=== PATIENT | male | born 1965 | race Caucasian/White ===

== ENCOUNTER 2018-09-22 10:04 | Emergency (ER) | payer BC ==
[2018-09-22] MEDS ORDERED: Sodium Chloride 0.9% 10 ML Syringe FLUSH PRN (10:09)
[2018-09-22] MEDS ORDERED: Sodium Chloride 0.9% 2.5 ML Syringe FLUSH PRN (10:09)
[2018-09-22] MEDS ORDERED: Sodium Chloride 0.9% 1,000 ML IV ONE (10:09)
--- NOTE | 2018-09-22 10:20 | EDM.PDOC ---
ED HPI GENERAL MEDICAL PROBLEM - General Chief Complaint: General Stated Complaint: FEELS FAINT Time Seen by Provider: 09/22/18 10:08 Source of Information: Reports: Patient History Limitations: Reports: No Limitations - History of Present Illness INITIAL COMMENTS - FREE TEXT/NARRATIVE: History of present illness: []Patient started feeling dizzy, weak, "just not right", with blurry vision and abdominal pain this morning. He's had no syncopal episode but has had episodes where he felt like he was about to pass out. Patient feels hot and flushed right before the episodes occur. Patient had similar episodes in March had a full workup through April and May. Dr. Young and has had an MRI of his brain on 05/29 this year that was normal. Review of systems: As per history of present illness and below otherwise all systems reviewed and negative. Past medical history: As per history of present illness and as reviewed below otherwise noncontributory. Surgical history: As per history of present illness and as reviewed below otherwise noncontributory. Social history: No reported history of drug or alcohol abuse. Family history: As per history of present illness and as reviewed below otherwise noncontributory. Physical exam: General: Well developed, well nourished in NAD HEENT: Atraumatic, normocephalic, pupils reactive, negative for conjunctival pallor or scleral icterus, mucous membranes moist, throat clear, neck supple, nontender, trachea midline. Lungs: Clear to auscultation, breath sounds equal bilaterally, chest nontender. Heart: S1S2, regular, negative for clicks, rubs, or JVD. Abdomen: NABS, Soft, nondistended, mild tenderness throughout no rebound or guarding. Negative for masses or hepatosplenomegaly. Negative for costovertebral tenderness. Pelvis: Stable nontender. Genitourinary: Deferred. Rectal: Deferred. Extremities: Atraumatic, negative for cords or calf pain. Neurovascular unremarkable. Neuro: Awake, alert, oriented. Cranial nerves II through XII unremarkable. Cerebellum unremarkable. Motor and sensory unremarkable throughout. Exam nonfocal. Skin:warm and dry Diagnostics: Bedside glucose, EKG, CBC, chemistry, troponin, UA, orthostatics Therapeutics: IV hydration ED Course: Stable improved Impression: Orthostatic hypotension, dehydration Prescriptions: None Plan: Take meds as directed, follow up with your primary care physician, return to ER if symptoms worsen or change. Definitive disposition and diagnosis as appropriate pending reevaluation and review of above. abd pain Pain Score (Numeric/FACES): 5 - Related Data Allergies Allergy/AdvReac Type Severity Reaction Status Date / Time adhesive Allergy Itching Verified 11/15/17 10:21 codeine Allergy Itching Verified 11/15/17 10:21 rocuronium Allergy Anaphylactic Verified 11/15/17 10:21 Shock Home Meds: Home Meds Blood Pressure Medications 09/22/18 [History] ED ROS GENERAL - Review of Systems Review Of Systems: See Below ED EXAM, GENERAL - Physical Exam Exam: See Below Course - Vital Signs Last Recorded V/S: Last Vital Signs Temp 97.8 F 09/22/18 10:11 Pulse 79 09/22/18 11:15 Resp 18 09/22/18 11:15 BP 142/86 H 09/22/18 11:15 Pulse Ox 97 09/22/18 11:15 Orthostatic Blood Pressure [ 94/59 Standing] Orthostatic Blood Pressure [ 125/75 Sitting] Orthostatic Blood Pressure [ 124/70 Supine] - Orders/Labs/Meds Orders: Active Orders 24 hr Category Date Time Status Blood Glucose Check, Bedside [RC] ONETIME Care 09/22/18 10:16 Active EKG Documentation Completion [RC] STAT Care 09/22/18 10:09 Active Orthostatic Vital Signs [RC] ASDIRECTED Care 09/22/18 10:09 Active LIPASE [CHEM] Stat Lab 09/22/18 10:15 Received Sodium Chloride 0.9% [Saline Flush] Med 09/22/18 10:09 Active 10 ml FLUSH ASDIRECTED PRN Sodium Chloride 0.9% [Saline Flush] Med 09/22/18 10:09 Active 2.5 ml FLUSH ASDIRECTED PRN Saline Lock Insert [OM.PC] Stat Oth 09/22/18 10:09 Ordered Medication Orders Sodium Chloride (Saline Flush) 10 ml FLUSH ASDIRECTED PRN PRN Reason: Keep Vein Open Sodium Chloride (Saline Flush) 2.5 ml FLUSH ASDIRECTED PRN PRN Reason: Keep Vein Open Labs: Laboratory Tests 09/22/18 09/22/18 09/22/18 Range/Units 10:15 10:15 11:25 WBC 10.92 (4.0-11.0) K/uL RBC 4.31 L (4.50-5.90) M/uL Hgb 14.6 (13.0-17.0) g/dL Hct 42.2 (38.0-50.0) % MCV 97.9 (80.0-98.0) fL MCH 33.9 H (27.0-32.0) pg MCHC 34.6 (31.0-37.0) g/dL RDW Std Deviation 46.5 (28.0-62.0) fl RDW Coeff of Roger 13 (11.0-15.0) % Plt Count 201 (150-400) K/uL MPV 10.80 (7.40-12.00) fL Neut % (Auto) 82.3 H (48.0-80.0) % Lymph % (Auto) 8.3 L (16.0-40.0) % Mcintosh % (Auto) 7.6 (0.0-15.0) % Eos % (Auto) 1.5 (0.0-7.0) % Baso % (Auto) 0.3 (0.0-1.5) % Neut # (Auto) 9.0 H (1.4-5.7) K/uL Lymph # (Auto) 0.9 (0.6-2.4) K/uL Mcintosh # (Auto) 0.8 (0.0-0.8) K/uL Eos # (Auto) 0.2 (0.0-0.7) K/uL Baso # (Auto) 0.0 (0.0-0.1) K/uL Nucleated RBC % 0.0 /100WBC Nucleated RBCs # 0 K/uL Sodium 137 (136-148) mmol/L Potassium 4.2 (3.5-5.1) mmol/L Chloride 104 (98-107) mmol/L Carbon Dioxide 21.6 (21.0-32.0) mmol/L BUN 16 (7.0-18.0) mg/dL Creatinine 1.2 (0.8-1.3) mg/dL Est Cr Clr Drug Dosing 83.13 mL/min Estimated GFR (MDRD) > 60.0 ml/min Glucose 112 H (74-106) mg/dL Calcium 8.9 (8.5-10.1) mg/dL Total Bilirubin 1.1 H (0.2-1.0) mg/dL AST 14 L (15-37) IU/L ALT 19 (14-63) IU/L Alkaline Phosphatase 75 (46-116) U/L Troponin I < 0.050 (0.000-0.056) ng/mL Total Protein 7.2 (6.4-8.2) g/dL Albumin 3.8 (3.4-5.0) g/dL Globulin 3.4 (2.6-4.0) g/dL Albumin/Globulin Ratio 1.1 (0.9-1.6) Urine Color YELLOW Urine Appearance CLEAR Urine pH 7.5 (5.0-8.0) Ur Specific [place] 1.010 (1.001-1.035) Urine Protein NEGATIVE (NEGATIVE) mg/dL Urine Glucose (UA) NEGATIVE (NEGATIVE) mg/dL Urine Ketones NEGATIVE (NEGATIVE) mg/dL Urine Occult Blood NEGATIVE (NEGATIVE) Urine Nitrite NEGATIVE (NEGATIVE) Urine Bilirubin NEGATIVE (NEGATIVE) Urine Urobilinogen 2.0 H (<2.0) EU/dL Ur Leukocyte Esterase NEGATIVE (NEGATIVE) Urine RBC NONE SEEN (0-2/HPF) Urine WBC NONE SEEN (0-5/HPF) Ur Epithelial Cells NOT SEEN (NONE-FEW) Urine Bacteria RARE (NEGATIVE) Meds: Medications Generic Name Dose Route Start Last Admin Trade Name Freq PRN Reason Stop Dose Admin Sodium Chloride 10 ml 09/22/18 10:09 Saline Flush FLUSH ASDIRECTED PRN Keep Vein Open Sodium Chloride 2.5 ml 09/22/18 10:09 Saline Flush FLUSH ASDIRECTED PRN Keep Vein Open Discontinued Medications Generic Name Dose Route Start Last Admin Trade Name Freq PRN Reason Stop Dose Admin Sodium Chloride 1,000 mls @ 999 mls/hr 09/22/18 10:09 09/22/18 10:30 Normal Saline IV 09/22/18 11:09 999 mls/hr STAT ONE Administration Departure - Departure Time of Disposition: 11:32 Disposition: Home, Self-Care 01 Condition: Good Clinical Impression: Dehydration, Orthostatic hypotension - Discharge Information *PRESCRIPTION DRUG MONITORING PROGRAM REVIEWED*: No *COPY OF PRESCRIPTION DRUG MONITORING REPORT IN PATIENT REJI: No Instructions: Orthostatic Hypotension, Dehydration, Adult, [id number] Referrals: PCP,None [Primary Care Provider] - Forms: ED Department Discharge Additional Instructions: The following information is given to patients seen in the emergency department who are being discharged to home. This information is to outline your options for follow-up care. We provide all patients seen in our emergency department with a follow-up referral. The need for follow-up, as well as the timing and circumstances, are variable depending upon the specifics of your emergency department visit. If you don't have a primary care physician on staff, we will provide you with a referral. We always advise you to contact your personal physician following an emergency department visit to inform them of the circumstance of the visit and for follow-up with them and/or the need for any referrals to a consulting specialist. The emergency department will also refer you to a specialist when appropriate. This referral assures that you have the opportunity for follow-up care with a specialist. All of these measure are taken in an effort to provide you with optimal care, which includes your follow-up. Under all circumstances we always encourage you to contact your private physician who remains a resource for coordinating your care. When calling for follow-up care, please make the office aware that this follow-up is from your recent emergency room visit. If for any reason you are refused follow-up, please contact the [facility] Emergency Department at and asked to speak to the emergency department charge nurse. [facility] [address] [place] [id number] - My Orders Last 24 Hours: My Active Orders 09/22/18 10:15 LIPASE [CHEM] Stat 09/22/18 10:16 Blood Glucose Check, Bedside [RC] ONETIME - Assessment/Plan Last 24 Hours: My Active Orders 09/22/18 10:15 LIPASE [CHEM] Stat 09/22/18 10:16 Blood Glucose Check, Bedside [RC] ONETIME
[2018-09-22 10:50] LABS: CHLORIDE,CL 104 mmol/L (98-107); SODIUM,NA 137 mmol/L (136-148)
--- NOTE | 2018-09-22 11:26 | CR ---
INDICATION: Near syncope. TECHNIQUE: Single portable AP image. COMPARISON: None. FINDINGS: Lungs low in volume, clear. No pleural effusion. Heart, mediastinum and pulmonary vessels within normal limits, allowing for the shallow inspiration. No significant osseous abnormality. IMPRESSION: Negative, allowing for low lung volumes. Dictated by Arnold Palma MD @ Sep 22 2018 11:24AM Signed by Dr. Arnold Palma @ Sep 22 2018 11:24AM
== END 2018-09-22 11:50 | disposition home or self-care (01) ==
LOC: MW.ED 10:04
DX: I95.1 Orthostatic hypotension (principal); E86.0 Dehydration; Z88.5 Allergy status to narcotic agent; Z91.09 Other allergy status, other than to drugs and biological substances
CPT/HCPCS: 36415; 71045; 80053; 81001; 83690; 84484; 85025; 93005; 96360; 99284; J7040

== ENCOUNTER 2018-12-16 09:28 | Emergency (ER) | payer BC ==
--- NOTE | 2018-12-16 09:49 | EDM.PDOC ---
<MartinezMarian - Last Filed: 12/16/18 13:39> ED HPI GENERAL MEDICAL PROBLEM - General Chief Complaint: Abdominal Pain Stated Complaint: ABD PAIN Time Seen by Provider: 12/16/18 09:48 Right Lower Abdomen Pain Score (Numeric/FACES): 10 - Related Data Allergies Allergy/AdvReac Type Severity Reaction Status Date / Time adhesive Allergy Itching Verified 12/16/18 09:52 codeine Allergy Itching Verified 12/16/18 09:52 rocuronium Allergy Anaphylactic Verified 12/16/18 09:52 Shock Home Meds: Home Meds Losartan Potassium 1 tab DAILY 12/16/18 [History] Metoprolol Succinate 1 tab DAILY 12/16/18 [History] Past Medical History Cardiovascular History: Reports: Hypertension - Infectious Disease History Infectious Disease History: Reports: Hepatitis C Other Infectious Disease History: treated for Hep C Social & Family History - Family History Family Medical History: Noncontributory Course - Vital Signs Last Recorded V/S: Last Vital Signs Temp 96.5 F 12/16/18 09:49 Pulse 61 12/16/18 09:49 Resp 20 12/16/18 09:49 BP 155/92 H 12/16/18 09:49 Pulse Ox 98 12/16/18 09:49 - Orders/Labs/Meds Labs: Laboratory Tests 12/16/18 12/16/18 12/16/18 Range/Units 10:03 10:03 10:10 WBC 9.04 (4.0-11.0) K/uL RBC 4.61 (4.50-5.90) M/uL Hgb 15.6 (13.0-17.0) g/dL Hct 45.4 (38.0-50.0) % MCV 98.5 H (80.0-98.0) fL MCH 33.8 H (27.0-32.0) pg MCHC 34.4 (31.0-37.0) g/dL RDW Std Deviation 43.9 (28.0-62.0) fl RDW Coeff of Roger 12 (11.0-15.0) % Plt Count 232 (150-400) K/uL MPV 10.80 (7.40-12.00) fL Neut % (Auto) 45.7 L (48.0-80.0) % Lymph % (Auto) 33.3 (16.0-40.0) % Bertie % (Auto) 8.6 (0.0-15.0) % Eos % (Auto) 12.1 H (0.0-7.0) % Baso % (Auto) 0.3 (0.0-1.5) % Neut # (Auto) 4.1 (1.4-5.7) K/uL Lymph # (Auto) 3.0 H (0.6-2.4) K/uL Bertie # (Auto) 0.8 (0.0-0.8) K/uL Eos # (Auto) 1.1 H (0.0-0.7) K/uL Baso # (Auto) 0.0 (0.0-0.1) K/uL Nucleated RBC % 0.0 /100WBC Nucleated RBCs # 0 K/uL Sodium 138 (136-148) mmol/L Potassium 4.5 (3.5-5.1) mmol/L Chloride 102 (98-107) mmol/L Carbon Dioxide 25.5 (21.0-32.0) mmol/L BUN 13 (7.0-18.0) mg/dL Creatinine 1.2 (0.8-1.3) mg/dL Est Cr Clr Drug Dosing 83.13 mL/min Estimated GFR (MDRD) > 60.0 ml/min Glucose 85 (74-106) mg/dL Calcium 9.1 (8.5-10.1) mg/dL Total Bilirubin 0.8 (0.2-1.0) mg/dL AST 21 (15-37) IU/L ALT 22 (14-63) IU/L Alkaline Phosphatase 77 (46-116) U/L Total Protein 7.6 (6.4-8.2) g/dL Albumin 4.0 (3.4-5.0) g/dL Globulin 3.6 (2.6-4.0) g/dL Albumin/Globulin Ratio 1.1 (0.9-1.6) Lipase 136 (73-393) U/L Urine Color YELLOW Urine Appearance CLEAR Urine pH 8.0 (5.0-8.0) Ur Specific [place] 1.010 (1.001-1.035) Urine Protein NEGATIVE (NEGATIVE) mg/dL Urine Glucose (UA) NEGATIVE (NEGATIVE) mg/dL Urine Ketones NEGATIVE (NEGATIVE) mg/dL Urine Occult Blood NEGATIVE (NEGATIVE) Urine Nitrite NEGATIVE (NEGATIVE) Urine Bilirubin NEGATIVE (NEGATIVE) Urine Urobilinogen >=8.0 H (<2.0) EU/dL Ur Leukocyte Esterase NEGATIVE (NEGATIVE) Meds: Medications Discontinued Medications Generic Name Dose Route Start Last Admin Trade Name Freq PRN Reason Stop Dose Admin Sodium Chloride 1,000 mls @ 999 mls/hr 12/16/18 09:58 12/16/18 10:13 Normal Saline IV 12/16/18 10:58 999 mls/hr STAT ONE Administration Iopamidol 100 ml 12/16/18 13:45 12/16/18 13:46 Isovue Multipack-370 (76%) IVPUSH 12/16/18 13:46 100 ml ONETIME STA Administration Ketorolac Tromethamine 30 mg 12/16/18 11:47 12/16/18 11:56 Toradol IVPUSH 12/16/18 11:48 30 mg ONETIME ONE Administration Morphine Sulfate 2 mg 12/16/18 09:58 12/16/18 10:13 Morphine IVPUSH 12/16/18 09:59 2 mg ONETIME ONE Administration Ondansetron HCl 4 mg 12/16/18 09:58 12/16/18 10:13 Zofran IVPUSH 12/16/18 09:59 4 mg ONETIME ONE Administration Departure - Departure Disposition: Home, Self-Care 01 Clinical Impression: Abdominal pain Qualifiers: Abdominal location: right lower quadrant Qualified Code(s): R10.31 - Right lower quadrant pain - Discharge Information Instructions: Abdominal Pain, Adult Referrals: Juan Young MD [Primary Care Provider] - Forms: ED Department Discharge Additional Instructions: The following information is given to patients seen in the emergency department who are being discharged to home. This information is to outline your options for follow-up care. We provide all patients seen in our emergency department with a follow-up referral. The need for follow-up, as well as the timing and circumstances, are variable depending upon the specifics of your emergency department visit. If you don't have a primary care physician on staff, we will provide you with a referral. We always advise you to contact your personal physician following an emergency department visit to inform them of the circumstance of the visit and for follow-up with them and/or the need for any referrals to a consulting specialist. The emergency department will also refer you to a specialist when appropriate. This referral assures that you have the opportunity for follow-up care with a specialist. All of these measure are taken in an effort to provide you with optimal care, which includes your follow-up. Under all circumstances we always encourage you to contact your private physician who remains a resource for coordinating your care. When calling for follow-up care, please make the office aware that this follow-up is from your recent emergency room visit. If for any reason you are refused follow-up, please contact the [facility] Emergency Department at and asked to speak to the emergency department charge nurse. [facility] [address] [place] [id number] [place] [address] 1. Clear liquid diet over the next 24 hours then you may advance as tolerated. 2. Follow-up with the general surgeon and/or your primary care provider as we discussed for further care and management 3. Return to the ED as needed and as discussed. <Pippa Richter E - Last Filed: 12/16/18 13:56> ED HPI GENERAL MEDICAL PROBLEM - General Source of Information: Reports: Patient History Limitations: Reports: No Limitations - History of Present Illness INITIAL COMMENTS - FREE TEXT/NARRATIVE: HISTORY AND PHYSICAL: History of present illness: Patient is a 53-year-old male who presents to the emergency room today with complaints of right lower abdominal and back pain. He states last week he was moving his personal belongings as he just moved to town. He was doing a lot of heavy lifting and physical activity over the past 1 week. He states he noticed some mild right lower quadrant pain which she describes as a burning/sharp sensation that does radiate into his mid back. He states over the past few days the pain becomes more severe and he does feel nauseated, flushed and dizzy. He has noticed his urine is darker in color and may be slightly pink tinged. He has no difficulty starting his sternum or any increase in frequency. Patient denies any fever, chills, headache, change in vision, syncope or near syncope. Denies any chest pain, shortness of breath or cough. Denies any vomiting, diarrhea, constipation or dysuria. Has not noted any blood in stool. He denies any testicular pain, swelling or erythema. Patient has been eating and drinking appropriately. Review of systems: As per history of present illness and below otherwise all systems reviewed and negative. Past medical history: As per history of present illness and as reviewed below otherwise noncontributory. Surgical history: As per history of present illness and as reviewed below otherwise noncontributory. Social history: See social history for further information Family history: As per history of present illness and as reviewed below otherwise noncontributory. Physical exam: General: Well-developed and well-nourished 53-year-old male. Alert and oriented. Nontoxic appearing and in no acute distress. HEENT: Atraumatic, normocephalic, pupils equal and reactive bilaterally, negative for conjunctival pallor or scleral icterus, mucous membranes moist, trachea midline. No drooling or trismus noted. No meningeal signs. No hot potato voice noted. Lungs: Clear to auscultation, breath sounds equal bilaterally, chest nontender. Heart: S1S2, regular rate and rhythm without overt murmur Abdomen: Soft, nondistended, right lower quadrant tenderness with rebound tenderness. Negative for masses or hepatosplenomegaly. Right sided costovertebral tenderness. Pelvis: Stable nontender. Skin: Intact, warm, dry. No lesions or rashes noted. Extremities: Atraumatic, moves all extremities per self without difficulty or deficits, negative for cords or calf pain. Neurovascular unremarkable. Neuro: Awake, alert, oriented. Cranial nerves II through XII unremarkable. Cerebellum unremarkable. Motor and sensory unremarkable throughout. Exam nonfocal. Notes: Lab work is unremarkable. CT shows few mildly prominent fluid filled small bowel loops within the lower abdomen/right lower quadrant without an obvious transition point. This may be transient. A localized ileus or less likely early/ partial small obstruction is in the differential. No evidence for appendicitis or diverticular disease. Surgically absent gallbladder, postsurgical change from anterior abdominal wall hernia repair, and 2 level lumbar spine fusion. These findings were shared with the patient and I did offer him admission. He reluctantly states that his symptoms have been ongoing for the past 4-5 months where he gets this right lower quadrant pain and it'll come in "waves" and then he will have a bout of diarrhea and not have any discomfort for several days, then the cycle repeats. He declines admission. He is aware of the risks versus benefits and accepts these risks. We discussed following up with primary care and/or general surgeon for further evaluation and management of this chronic abdominal pain. Diagnostics: CBC, CMP, UA, lipase, CT abdomen and pelvis Therapeutics: IV fluid, Zofran, morphine Prescription: None Impression: Abdominal Pain Plan: 1. Clear liquid diet over the next 24 hours then he may advance as tolerated. 2. Follow-up with the general surgeon and/or your primary care provider as we discussed for further care and management 3. Return to the ED as needed and as discussed. Definitive disposition and diagnosis as appropriate pending reevaluation and review of above. ED ROS GENERAL - Review of Systems Review Of Systems: ROS reveals no pertinent complaints other than HPI. ED EXAM, GI/ABD - Physical Exam Exam: See Below (See dictation) Departure - Departure Time of Disposition: 12:39
[2018-12-16] MEDS ORDERED: Sodium Chloride 0.9% 1,000 ML IV ONE (09:58)
[2018-12-16] MEDS ORDERED: Ondansetron 4 MG/2 ML SDV IVPUSH ONE (09:58)
[2018-12-16] MEDS ORDERED: Morphine 2 MG/ML Syringe IVPUSH ONE (09:58)
[2018-12-16 10:37] LABS: BLOOD UREA NITROGEN,BUN 13 mg/dL (7.0-18.0); CARBON DIOXIDE,CO2 25.5 mmol/L (21.0-32.0); CHLORIDE,CL 102 mmol/L (98-107); GLUCOSE RANDOM 85 mg/dL (74-106); LIPASE 136 U/L (73-393); POTASSIUM,K 4.5 mmol/L (3.5-5.1); SODIUM,NA 138 mmol/L (136-148)
[2018-12-16] MEDS ORDERED: Ketorolac 30 MG/ML SDV IVPUSH ONE (11:47)
--- NOTE | 2018-12-16 12:23 | CT ---
INDICATION: 53 year-old male. Right lower quadrant abdominal pain. TECHNIQUE: Contrast-enhanced CT of the abdomen and pelvis. 100 cc nonionic Isovue-370 administered. COMPARISON: November 15, 2017. FINDINGS: The appendix is normal. Please see image 112 series 201. No evidence for diverticular disease. There are a few mildly distended fluid filled small bowel loops within the central lower pelvis and right lower quadrant without an obvious transition point. Although potentially transient, this could reflect a localized ileus or less likely an early/partial small bowel obstruction. There is no free air, ascites, or abscess. Scattered vascular calcification within a normal caliber abdominal aorta and iliac arteries. Surgically absent gallbladder. Postsurgical change in the anterior abdominal wall from previous ventral hernia repair. Clear included lung bases. The liver is negative for masses or biliary ductal dilatation. The spleen is not enlarged. Normal pancreas, adrenal glands, and kidneys. No urinary tract calculi or renal obstruction. The stomach and duodenum although incompletely distended are within normal limits. The urinary bladder is unremarkable. Mild prostatic enlargement. Normal seminal vesicles. Normal inguinal regions. Two level lumbar spine fusion L4 and L5 posteriorly. IMPRESSION: 1. There are few mildly prominent fluid filled small bowel loops within the lower abdomen/right lower quadrant without an obvious transition point. This may be transient. A localized ileus or less likely early/partial small obstruction is in the differential. 2. No evidence for appendicitis or diverticular disease. 3. Surgically absent gallbladder, postsurgical change from anterior abdominal wall hernia repair, and 2 level lumbar spine fusion. Please note that all CT scans at this facility use dose modulation, iterative reconstruction, and/or weight-based dosing when appropriate to reduce radiation dose to as low as reasonably achievable. Dictated by Tommie Flores MD @ Dec 16 2018 12:12PM Signed by Dr. Tommie Flores @ Dec 16 2018 12:21PM
[2018-12-16] MEDS ORDERED: Iopamidol 755 MG/ML 200 ML Multipack Bottle IVPUSH STA (13:45)
== END 2018-12-16 12:44 | disposition home or self-care (01) ==
LOC: MW.ED 09:28
DX: R10.31 Right lower quadrant pain (principal); I10 Essential (primary) hypertension; Z79.899 Other long term (current) drug therapy; Z88.5 Allergy status to narcotic agent; Z91.048 Other nonmedicinal substance allergy status
CPT/HCPCS: 36415; 74177; 80053; 81003; 83690; 85025; 96361; 96374; 96375; 99284; J1885; J2270; J2405; J7040; Q9967; 99283

== ENCOUNTER 2019-01-15 07:51 | Day surgery (SDC) | payer BC ==
[~2019-01-15 07:51] MED LIST: Lactated Ringers 1,000 ML IV SCH; Lidocaine 2% 5 ML SDV ONE; Propofol 200 MG/20 ML SDV ONE; fentaNYL 100 MCG/2 ML SDV ONE
--- NOTE | 2019-01-15 08:50 | PCM.PREANE ---
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 Family History of Anesthesia Reaction: Yes Transfusion History: No Prior Transfusion(s) - Review of Systems General: No Symptoms Pulmonary: No Symptoms Cardiovascular: No Symptoms Neurological: No Symptoms Other: Reports: None - Physical Assessment NPO Status Date: 01/14/19 Vital Signs: Last Vital Signs Temp 97.0 F 01/15/19 08:00 Pulse 84 01/15/19 08:00 Resp 16 01/15/19 08:00 BP 131/89 01/15/19 08:00 Pulse Ox 94 L 01/15/19 08:00 Height: 6 ft 3 in Weight: 96.162 kg ASA Class: 2 Mental Status: Alert & Oriented x3 Airway Class: Mallampati = 2 Dentition: Reports: Dentures (full, upper and lower) ROM/Head Extension: Full Lungs: Clear to Auscultation, Normal Respiratory Effort Cardiovascular: Regular Rate, Regular Rhythm - Allergies Allergies/Adverse Reactions: Allergies Allergy/AdvReac Type Severity Reaction Status Date / Time adhesive Allergy Itching Verified 01/10/19 07:10 codeine Allergy Itching Verified 01/10/19 07:10 rocuronium Allergy Anaphylactic Verified 01/10/19 07:10 Shock - Blood Blood Available: No - Anesthesia Plan Pre-Op Medication Ordered: None - Acknowledgements Anesthesia Type Planned: General Anesthesia Pt an Appropriate Candidate for the Planned Anesthesia: Yes Alternatives and Risks of Anesthesia Discussed w Pt/Guardian: Yes Pt/Guardian Understands and Agrees with Anesthesia Plan: Yes Additional Comments: anes prob list: anaphylactic rxn to rocuronium, htn, hep C-treated, prob PERFECTO- never tested-snores loudly, smoker, DENIES HX OF MULTIPLE MYELOMA PLAN: tiva PreAnesthesia Questionnaire HEENT History: Reports: Other (See Below) Other HEENT History: top and bottom dentures Cardiovascular History: Reports: Hypertension Respiratory History: Reports: Other (See Below) Other Respiratory History: self diagnosed sleep apnea Gastrointestinal History: Reports: GERD, Hepatitis Other Gastrointestinal History: hx hepatitis C with treatment Genitourinary History: Reports: None Musculoskeletal History: Reports: Back Pain, Chronic, Neck Pain, Chronic Neurological History: Reports: None Psychiatric History: Reports: None Endocrine/Metabolic History: Reports: None Hematologic History: Reports: None Immunologic History: Reports: None Oncologic (Cancer) History: Reports: None Dermatologic History: Reports: Psoriasis - Infectious Disease History Infectious Disease History: Reports: Hepatitis C Other Infectious Disease History: treated for Hep C - Past Surgical History Head Surgeries/Procedures: Reports: None HEENT Surgical History: Reports: Naso-Sinus Surgery Cardiovascular Surgical History: Reports: None Respiratory Surgical History: Reports: None GI Surgical History: Reports: Cholecystectomy, Hernia, Inguinal, Hernia Repair/ Other Other GI Surgeries/Procedures: christine inguinal hernia repair, hiatal hernia repair x7 Male Surgical History: Reports: None Endocrine Surgical History: Reports: None Neurological Surgical History: Reports: C-Spine, Spinal Fusion Other Neurological Surgeries/Procedures: back surgery x8, neck surgery Musculoskeletal Surgical History: Reports: Arthroscopic Knee, Shoulder Surgery, Other (See Below) Oncologic Surgical History: Reports: None Dermatological Surgical History: Reports: None - SUBSTANCE USE Smoking Status *Q: Current Every Day Smoker Tobacco Use Within Last Twelve Months: Cigarettes Days Per Week of Alcohol Use: 7 Number of Drinks Per Day: 2 Total Drinks Per Week: 14 - HOME MEDS Home Medications: Home Meds Losartan Potassium 1 tab PO DAILY 12/16/18 [History] Metoprolol Succinate 1 tab PO DAILY 12/16/18 [History] Omeprazole Magnesium [Prilosec Otc] 1 tab PO DAILY 01/10/19 [History] Ondansetron [Zofran] 1 tab PO ASDIRECTED PRN 01/10/19 [History] - CURRENT (IN HOUSE) MEDS Current Meds: Current Medications Lactated Ringer's (Ringers, Lactated) 1,000 mls @ 125 mls/hr IV ASDIRECTED ALVIN Discontinued Medications Fentanyl (Sublimaze) Confirm Administered Dose 100 mcg .ROUTE .STK-MED ONE Stop: 01/15/19 07:29 Lidocaine (Xylocaine-Mpf 2%) Confirm Administered Dose 5 ml .ROUTE .STK-MED ONE Stop: 01/15/19 07:29 Propofol (Diprivan 20 Ml) Confirm Administered Dose 400 mg .ROUTE .STK-MED ONE Stop: 01/15/19 07:29
[2019-01-15] MEDS ORDERED: Propofol 200 MG/20 ML SDV ONE (09:08)
--- NOTE | 2019-01-15 09:18 | PCM.OPNOTE ---
- General Post-Op/Procedure Note Date of Surgery/Procedure: 01/15/19 Operative Procedure(s): Colonoscopy with cold distal transverse colon polypectomy Pre Op Diagnosis: Abdominal pain. Change in bowel habits. Family history of colon cancer. Family history of colon polyps. Post-Op Diagnosis: Distal transverse colon polyp Anesthesia Technique: MAC (ASA II) Primary Surgeon: Rock Burns Condition: Good Free Text/Narrative:: DICTATION [id number] CPT CODE 02769
[2019-01-15] MEDS ORDERED: Lactated Ringers 1,000 ML IV SCH (09:30)
--- NOTE | 2019-01-15 09:44 | OR ---
SURGEON: Rock Burns M.D. DATE OF PROCEDURE: 01/15/2019 OPERATION PERFORMED: Colonoscopy with cold distal transverse colon polypectomy. PRIMARY SURGEON: Rock Burns M.D. ANESTHESIA: MAC. ASA CLASSIFICATION: II. PREOPERATIVE DIAGNOSES: 1. Abdominal pain. 2. Change in bowel habits. 3. Family history of colon cancer. 4. Family history of colon polyps. POSTOPERATIVE DIAGNOSIS: Distal transverse colon polyp. DESCRIPTION OF PROCEDURE: The patient was taken to the endoscopy room and positioned on the endoscopy table in the left lateral decubitus position. Time-out was called for appropriate identification of patient and procedure. Monitored anesthesia care was provided. The colonoscope was inserted into the rectum and advanced with minimal difficulty to the cecum. The colonoscope was retroflexed to visualize the ascending colon from below, then straightened and slowly withdrawn. Cecum was identified by internal landmarks and external pressure. The cecum, ascending colon, hepatic flexure, proximal and mid transverse colon showed no tumors, polyps, diverticula, or angiodysplastic changes. One small polyp was encountered in the distal transverse colon just proximal to the splenic flexure. This was removed with the cold biopsy forceps. The descending colon, sigmoid colon, and rectum showed no tumors, polyps, diverticula, or angiodysplastic changes. The colonoscope was retroflexed in the rectum to the to visualize the anal orifice from above. No tumors, polyps, or acute hemorrhoidal changes were noted. The colonoscope was then straightened, the rectum aspirated, and the colonoscope removed. The patient tolerated the procedure well and was taken to recovery room in stable condition. INEZ / LAZARA /[id number]
--- NOTE | 2019-01-15 09:51 | PCM.POSTAN ---
POST ANESTHESIA ASSESSMENT - MENTAL STATUS Mental Status: Alert, Oriented - VITAL SIGNS Vital Signs: Last Vital Signs Temp 97.0 F 01/15/19 08:00 Pulse 67 01/15/19 09:45 Resp 18 01/15/19 09:45 BP 121/82 01/15/19 09:45 Pulse Ox 95 01/15/19 09:45 - RESPIRATORY Respiratory Status: Respiratory Rate WNL, Airway Patent, O2 Saturation Stable - CARDIOVASCULAR CV Status: Pulse Rate WNL, Blood Pressure Stable - GASTROINTESTINAL GI Status: No Symptoms - POST OP HYDRATION Hydration Status: Adequate & Stable
--- NOTE | 2019-01-15 10:08 | PCM48HPAN ---
Post Anesthesia Note - EVALUATION WITHIN 48HRS OF ANESTHETIC Vital Signs in Normal Range: Yes Patient Participated in Evaluation: Yes Respiratory Function Stable: Yes Airway Patent: Yes Cardiovascular Function Stable: Yes Hydration Status Stable: Yes Pain Control Satisfactory: Yes Nausea and Vomiting Control Satisfactory: Yes Mental Status Recovered: Yes Vital Signs: Last Vital Signs Temp 97.0 F 01/15/19 08:00 Pulse 67 01/15/19 09:45 Resp 18 01/15/19 09:45 BP 121/82 01/15/19 09:45 Pulse Ox 95 01/15/19 09:45
== END 2019-01-15 10:15 | disposition home or self-care (01) ==
LOC: MW.SDS 07:51
PROVIDERS: ATTEND Surgery
DX: D12.3 Benign neoplasm of transverse colon (principal); I10 Essential (primary) hypertension; K21.9 Gastro-esophageal reflux disease without esophagitis; F17.210 Nicotine dependence, cigarettes, uncomplicated; Z80.0 Family history of malignant neoplasm of digestive organs; Z83.71 Family history of colonic polyps; Z88.5 Allergy status to narcotic agent; Z88.8 Allergy status to other drugs, medicaments and biological substances; Z91.048 Other nonmedicinal substance allergy status; Z79.899 Other long term (current) drug therapy
CPT/HCPCS: 45380; J2001; J2704; J3010; J7120; 00811; 88305

== ENCOUNTER 2019-05-29 14:26 | Emergency (ER) | payer BC ==
[2019-05-29] MEDS ORDERED: Sodium Chloride 0.9% 1,000 ML IV ONE (15:02)
--- NOTE | 2019-05-29 15:40 | EDM.PDOC ---
ED HPI GENERAL MEDICAL PROBLEM - General Chief Complaint: Flank Pain Stated Complaint: PAIN RT SIDE/ FEVER Time Seen by Provider: 05/29/19 15:33 Source of Information: Reports: Patient History Limitations: Reports: No Limitations - History of Present Illness INITIAL COMMENTS - FREE TEXT/NARRATIVE: This 53 year old male is admitted to the ED with a chief complaint of right flank pain with pain into the right groin. He states that the pain started last night. He states that the pain was very sharp with associated nausea and loss of appetite. He states that the pain is less and that on the pain scale is a 5. He denies any nausea or vomiting. He denies any urinary symptoms. He denies any other complaints at this time. Onset: Other (sudden onset of right flank pain yesterday which is somewhat better now) Duration: Intermittent Location: Reports: Other (right flank to right groin) Quality: Reports: Sharp Severity: Moderate Associated Symptoms: Reports: No Other Symptoms right flank Pain Score (Numeric/FACES): 7 - Related Data Allergies Allergy/AdvReac Type Severity Reaction Status Date / Time adhesive Allergy Itching Verified 05/29/19 14:50 codeine Allergy Itching Verified 05/29/19 14:50 rocuronium Allergy Anaphylactic Verified 05/29/19 14:50 Shock Home Meds: Home Meds Losartan Potassium 1 tab PO DAILY 12/16/18 [History] Metoprolol Succinate 1 tab PO DAILY 12/16/18 [History] Omeprazole Magnesium [Prilosec Otc] 1 tab PO DAILY 01/10/19 [History] Ondansetron [Zofran] 1 tab PO ASDIRECTED PRN 01/10/19 [History] Hydrocodone/Acetaminophen [Hydrocodon-Acetaminophn 10-325] 1 tab PO ASDIRECTED 05/29/19 [History] Past Medical History HEENT History: Reports: Other (See Below) Other HEENT History: top and bottom dentures Cardiovascular History: Reports: Hypertension Respiratory History: Reports: Other (See Below) Other Respiratory History: self diagnosed sleep apnea Gastrointestinal History: Reports: GERD, Hepatitis Other Gastrointestinal History: hx hepatitis C with treatment Genitourinary History: Reports: None Musculoskeletal History: Reports: Back Pain, Chronic, Neck Pain, Chronic Neurological History: Reports: None Psychiatric History: Reports: None Endocrine/Metabolic History: Reports: None Hematologic History: Reports: None Immunologic History: Reports: None Oncologic (Cancer) History: Reports: None Dermatologic History: Reports: Psoriasis - Infectious Disease History Infectious Disease History: Reports: Hepatitis C Other Infectious Disease History: treated for Hep C - Past Surgical History Head Surgeries/Procedures: Reports: None HEENT Surgical History: Reports: Naso-Sinus Surgery Cardiovascular Surgical History: Reports: None Respiratory Surgical History: Reports: None GI Surgical History: Reports: Cholecystectomy, Hernia, Inguinal, Hernia Repair/ Other Other GI Surgeries/Procedures: christine inguinal hernia repair, hiatal hernia repair x7 Male Surgical History: Reports: None Endocrine Surgical History: Reports: None Neurological Surgical History: Reports: C-Spine, Spinal Fusion Other Neurological Surgeries/Procedures: back surgery x8, neck surgery Musculoskeletal Surgical History: Reports: Arthroscopic Knee, Shoulder Surgery, Other (See Below) Oncologic Surgical History: Reports: None Dermatological Surgical History: Reports: None Social & Family History - Family History Family Medical History: Noncontributory - Tobacco Use Smoking Status *Q: Current Every Day Smoker Years of Tobacco use: 25 Packs/Tins Daily: 1 - Recreational Drug Use Recreational Drug Use: No ED ROS GENERAL - Review of Systems Review Of Systems: See Below Constitutional: Reports: No Symptoms HEENT: Reports: No Symptoms Respiratory: Reports: No Symptoms Cardiovascular: Reports: No Symptoms Endocrine: Reports: No Symptoms GI/Abdominal: Reports: Abdominal Pain : Reports: No Symptoms Musculoskeletal: Reports: No Symptoms Skin: Reports: No Symptoms Neurological: Reports: No Symptoms ED EXAM, GI/ABD - Physical Exam Exam: See Below Exam Limited By: No Limitations General Appearance: Alert, WD/WN, No Apparent Distress Ears: Normal External Exam, Normal Canal, Hearing Grossly Normal, Normal TMs Nose: Normal Inspection, Normal Mucosa, No Blood Throat/Mouth: Normal Inspection, Normal Lips, Normal Teeth, Normal Gums, Normal Oropharynx, Normal Voice, No Airway Compromise Neck: Normal Inspection, Supple, Non-Tender, Full Range of Motion Respiratory/Chest: No Respiratory Distress, Lungs Clear, Normal Breath Sounds, No Accessory Muscle Use, Chest Non-Tender Cardiovascular: Normal Peripheral Pulses, Regular Rate, Rhythm, No Edema, No JVD , No Murmur GI/Abdominal Exam: Normal Bowel Sounds, Soft, No Distention, No Abnormal Bruit, No Mass, Tender (right upper abdomen), Other (right CVA tenderness). No: Guarding, Rigid, Rebound (Male) Exam: Deferred Rectal (Males) Exam: Deferred Back Exam: Normal Inspection, CVA Tenderness (R) Extremities: Normal Inspection, Normal Range of Motion, Non-Tender, Normal Capillary Refill, No Pedal Edema Neurological: Alert, Oriented, CN II-XII Intact, Normal Cognition, Normal Reflexes, No Motor/Sensory Deficits Psychiatric: Normal Affect, Normal Mood Skin Exam: Warm, Dry, Intact, Normal Color, No Rash Lymphatic: No Adenopathy Course - Vital Signs Text/Narrative:: I reviewed all of the patients lab studies and CT of the abdomen and pelvis. No acute findings noted on the CT scan. I discussed this with the patient who states that he feels fine without pain at this time. My re-evaluation is totally unremarkable. He most likely passed a stone. He will be discharged. He agrees with the discharge plan. Last Recorded V/S: Last Vital Signs Temp 97.3 F 05/29/19 14:46 Pulse 64 05/29/19 14:46 Resp 16 05/29/19 14:46 BP 182/100 H 05/29/19 14:46 Pulse Ox 99 05/29/19 14:46 - Orders/Labs/Meds Labs: Laboratory Tests 05/29/19 05/29/19 05/29/19 Range/Units 15:08 15:17 15:17 WBC 7.28 (4.0-11.0) K/uL RBC 3.95 L (4.50-5.90) M/uL Hgb 13.5 (13.0-17.0) g/dL Hct 39.4 (38.0-50.0) % MCV 99.7 H (80.0-98.0) fL MCH 34.2 H (27.0-32.0) pg MCHC 34.3 (31.0-37.0) g/dL RDW Std Deviation 46.7 (28.0-62.0) fl RDW Coeff of Roger 13 (11.0-15.0) % Plt Count 224 (150-400) K/uL MPV 10.80 (7.40-12.00) fL Neut % (Auto) 41.7 L (48.0-80.0) % Lymph % (Auto) 39.7 (16.0-40.0) % [place] % (Auto) 12.6 (0.0-15.0) % Eos % (Auto) 5.6 (0.0-7.0) % Baso % (Auto) 0.4 (0.0-1.5) % Neut # (Auto) 3.0 (1.4-5.7) K/uL Lymph # (Auto) 2.9 H (0.6-2.4) K/uL [place] # (Auto) 0.9 H (0.0-0.8) K/uL Eos # (Auto) 0.4 (0.0-0.7) K/uL Baso # (Auto) 0.0 (0.0-0.1) K/uL Nucleated RBC % 0.0 /100WBC Nucleated RBCs # 0 K/uL Lactate (0.20-2.00) mmol/L Sodium 143 (136-148) mmol/L Potassium 4.0 (3.5-5.1) mmol/L Chloride 107 (98-107) mmol/L Carbon Dioxide 25.7 (21.0-32.0) mmol/L BUN 10 (7.0-18.0) mg/dL Creatinine 1.1 (0.8-1.3) mg/dL Est Cr Clr Drug Dosing 90.69 mL/min Estimated GFR (MDRD) > 60.0 ml/min Glucose 85 (74-106) mg/dL Calcium 9.1 (8.5-10.1) mg/dL Total Bilirubin 0.8 (0.2-1.0) mg/dL AST 20 (15-37) IU/L ALT 27 (14-63) IU/L Alkaline Phosphatase 68 (46-116) U/L Total Protein 7.4 (6.4-8.2) g/dL Albumin 4.2 (3.4-5.0) g/dL Globulin 3.2 (2.6-4.0) g/dL Albumin/Globulin Ratio 1.3 (0.9-1.6) Lipase 175 (73-393) U/L Urine Color YELLOW Urine Appearance CLEAR Urine pH 6.0 (5.0-8.0) Ur Specific [place] 1.020 (1.001-1.035) Urine Protein NEGATIVE (NEGATIVE) mg/dL Urine Glucose (UA) NEGATIVE (NEGATIVE) mg/dL Urine Ketones NEGATIVE (NEGATIVE) mg/dL Urine Occult Blood NEGATIVE (NEGATIVE) Urine Nitrite NEGATIVE (NEGATIVE) Urine Bilirubin NEGATIVE (NEGATIVE) Urine Urobilinogen 0.2 (<2.0) EU/dL Ur Leukocyte Esterase NEGATIVE (NEGATIVE) 05/29/19 Range/Units 15:17 WBC (4.0-11.0) K/uL RBC (4.50-5.90) M/uL Hgb (13.0-17.0) g/dL Hct (38.0-50.0) % MCV (80.0-98.0) fL MCH (27.0-32.0) pg MCHC (31.0-37.0) g/dL RDW Std Deviation (28.0-62.0) fl RDW Coeff of Roger (11.0-15.0) % Plt Count (150-400) K/uL MPV (7.40-12.00) fL Neut % (Auto) (48.0-80.0) % Lymph % (Auto) (16.0-40.0) % [place] % (Auto) (0.0-15.0) % Eos % (Auto) (0.0-7.0) % Baso % (Auto) (0.0-1.5) % Neut # (Auto) (1.4-5.7) K/uL Lymph # (Auto) (0.6-2.4) K/uL [place] # (Auto) (0.0-0.8) K/uL Eos # (Auto) (0.0-0.7) K/uL Baso # (Auto) (0.0-0.1) K/uL Nucleated RBC % /100WBC Nucleated RBCs # K/uL Lactate 0.6 (0.20-2.00) mmol/L Sodium (136-148) mmol/L Potassium (3.5-5.1) mmol/L Chloride (98-107) mmol/L Carbon Dioxide (21.0-32.0) mmol/L BUN (7.0-18.0) mg/dL Creatinine (0.8-1.3) mg/dL Est Cr Clr Drug Dosing mL/min Estimated GFR (MDRD) ml/min Glucose (74-106) mg/dL Calcium (8.5-10.1) mg/dL Total Bilirubin (0.2-1.0) mg/dL AST (15-37) IU/L ALT (14-63) IU/L Alkaline Phosphatase (46-116) U/L Total Protein (6.4-8.2) g/dL Albumin (3.4-5.0) g/dL Globulin (2.6-4.0) g/dL Albumin/Globulin Ratio (0.9-1.6) Lipase (73-393) U/L Urine Color Urine Appearance Urine pH (5.0-8.0) Ur Specific [place] (1.001-1.035) Urine Protein (NEGATIVE) mg/dL Urine Glucose (UA) (NEGATIVE) mg/dL Urine Ketones (NEGATIVE) mg/dL Urine Occult Blood (NEGATIVE) Urine Nitrite (NEGATIVE) Urine Bilirubin (NEGATIVE) Urine Urobilinogen (<2.0) EU/dL Ur Leukocyte Esterase (NEGATIVE) Meds: Medications Discontinued Medications Generic Name Dose Route Start Last Admin Trade Name Freq PRN Reason Stop Dose Admin Sodium Chloride 1,000 mls @ 1,000 mls/hr 05/29/19 15:02 05/29/19 15:17 Normal Saline IV 05/29/19 16:01 1,000 mls/hr .Bolus ONE Administration Iopamidol 100 ml 05/29/19 15:52 05/29/19 16:06 Isovue Multipack-370 (76%) IVPUSH 05/29/19 15:53 100 ml ONETIME STA Administration Departure - Departure Time of Disposition: 17:09 Disposition: Home, Self-Care 01 Condition: Good Clinical Impression: Acute right flank pain - Discharge Information *PRESCRIPTION DRUG MONITORING PROGRAM REVIEWED*: Yes *COPY OF PRESCRIPTION DRUG MONITORING REPORT IN PATIENT REJI: Yes Instructions: Kidney Stones, [id number], Flank Pain, Adult, [id number] Referrals: Juan Young MD [Primary Care Provider] - Forms: ED Department Discharge Additional Instructions: Follow up with your PCP in the next two to four days. Drink plenty of clear liquids for the next 24-48 hours. You most likely passed a kidney stone. Rest for the next 24 hours. Return to the ED if your condition gets worse or should you have any questions or concerns. The following information is given to patients seen in the emergency department who are being discharged to home. This information is to outline your options for follow-up care. We provide all patients seen in our emergency department with a follow-up referral. The need for follow-up, as well as the timing and circumstances, are variable depending upon the specifics of your emergency department visit. If you don't have a primary care physician on staff, we will provide you with a referral. We always advise you to contact your personal physician following an emergency department visit to inform them of the circumstance of the visit and for follow-up with them and/or the need for any referrals to a consulting specialist. The emergency department will also refer you to a specialist when appropriate. This referral assures that you have the opportunity for follow-up care with a specialist. All of these measure are taken in an effort to provide you with optimal care, which includes your follow-up. Under all circumstances we always encourage you to contact your private physician who remains a resource for coordinating your care. When calling for follow-up care, please make the office aware that this follow-up is from your recent emergency room visit. If for any reason you are refused follow-up, please contact the [facility] Emergency Department at and asked to speak to the emergency department charge nurse. Sepsis Event Note - Evaluation Sepsis Screening Result: No Definite Risk - Focused Exam Vital Signs: Vital Signs Temp Pulse Resp BP Pulse Ox 05/29/19 14:46 97.3 F 64 16 182/100 H 99 Date Exam was Performed: 05/29/19 Time Exam was Performed: 17:08
[2019-05-29 15:45] LABS: BLOOD UREA NITROGEN,BUN 10 mg/dL (7.0-18.0); CARBON DIOXIDE,CO2 25.7 mmol/L (21.0-32.0); CHLORIDE,CL 107 mmol/L (98-107); GLUCOSE RANDOM 85 mg/dL (74-106); LIPASE 175 U/L (73-393); SODIUM,NA 143 mmol/L (136-148)
[2019-05-29] MEDS ORDERED: Iopamidol 755 MG/ML 500 ML Multipack Bottle IVPUSH STA (15:52)
--- NOTE | 2019-05-29 16:36 | CT ---
CT abdomen and pelvis Technique: Multiple axial sections were obtained from above the dome of the diaphragm inferiorly through the pubic symphysis. Intravenous contrast was utilized. Oral contrast has been given. Comparison: Prior CT abdomen and pelvis study of 12/16/18. Findings: Visualized lung bases show nothing acute. Liver contains no focal parenchymal abnormality. Surgical clips are seen from prior cholecystectomy. Spleen appears within normal limits. Adrenal glands show no nodule. Pancreas appears within normal limits. Aorta shows no aneurysm. Mild atherosclerotic calcification is seen within the aorta. Kidneys show symmetric contrast enhancement without hydronephrosis or mass. Aorta shows no aneurysm. No retroperitoneal adenopathy or mesenteric abnormalities are seen. Surgical material is seen along the abdominal wall. No pelvic mass or adenopathy is seen. No free fluid or inflammatory change is appreciated. Appendix is seen which is normal in size. Bone window settings were reviewed which shows previous lumbar spine surgery with transpedical screws at L4-S1. Minimal scattered degenerative change is noted within other portions of the spine. Impression: 1. Nothing acute is appreciated on CT study of the abdomen and pelvis. 2. Findings believed to be incidental as described above. Diagnostic code #2 Study was dictated in MDT
== END 2019-05-29 17:23 | disposition home or self-care (01) ==
LOC: MW.ED 14:26
DX: R10.11 Right upper quadrant pain (principal); I10 Essential (primary) hypertension; K21.9 Gastro-esophageal reflux disease without esophagitis; Z90.49 Acquired absence of other specified parts of digestive tract; F17.210 Nicotine dependence, cigarettes, uncomplicated; Z88.8 Allergy status to other drugs, medicaments and biological substances; Z88.5 Allergy status to narcotic agent; Z79.899 Other long term (current) drug therapy
CPT/HCPCS: 36415; 74177; 80053; 81003; 83605; 83690; 85025; 96360; 99284; J7030; Q9967

== ENCOUNTER 2019-08-28 17:09 | Emergency (ER) | payer BC ==
[2019-08-28 18:06] LABS: BLOOD UREA NITROGEN,BUN 8 mg/dL (7.0-18.0); CARBON DIOXIDE,CO2 24.3 mmol/L (21.0-32.0); CHLORIDE,CL 105 mmol/L (98-107); GLUCOSE RANDOM 106 mg/dL (74-106); POTASSIUM,K 3.8 mmol/L (3.5-5.1); SODIUM,NA 140 mmol/L (136-148)
[2019-08-28] MEDS ORDERED: Nitroglycerin 0.4 MG Tab.SL SL PRN (18:14)
[2019-08-28] MEDS ORDERED: Heparin Sodium 5,000 Units/ML Vial IVPUSH ONE ×2 (18:14→18:24)
[2019-08-28] MEDS ORDERED: Heparin Sod,Pork In 0.45% Nacl 25,000 UNIT/500 ML IV.SOLN IV SCH (18:15)
[2019-08-28] MEDS ORDERED: Nitroglycerin/D5W 25 MG/250 ML BOTTLE ONE (18:25)
[2019-08-28] MEDS ORDERED: Nitroglycerin/D5W 25 MG/250 ML BOTTLE IV SCH (18:30)
[2019-08-28] MEDS ORDERED: Aspirin 81 MG Tab.Chew PO ONE (18:38)
[2019-08-28] MEDS ORDERED: LORazepam 2 MG/ML SDV IVPUSH ONE (18:39)
[2019-08-28] MEDS ORDERED: Ondansetron 4 MG/2 ML SDV IVPUSH ONE (18:39)
--- NOTE | 2019-08-28 18:56 | EDM.PDOC ---
ED HPI GENERAL MEDICAL PROBLEM - General Chief Complaint: Chest Pain Stated Complaint: CHEST PAIN/TROUBLE BREATHING Time Seen by Provider: 08/28/19 17:20 Source of Information: Reports: Patient History Limitations: Reports: No Limitations - History of Present Illness INITIAL COMMENTS - FREE TEXT/NARRATIVE: Presents with chest pain and not feeling well. States that he was at physical therapy this morning for an unrelated back problem when he "got white and felt faint". He discontinued the session but resisted coming into the emergency room. Throughout the afternoon he has continued to feel poorly with off and on vague chest pain, shortness of breath, headache and lightheadedness. He states that he checked his blood pressure and it was over 200 on the top and over 100 on the bottom. He finally convinced himself that he needed to come in. He has a 18-[id number]-[id number] smoking history as well as a history of hypertension. 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 He did have a constellation of symptoms around chest pain a year ago. At that time he did have a complete cardiac work-up including stress test which was negative. Left Chest Pain Score (Numeric/FACES): 7 - Related Data Allergies Allergy/AdvReac Type Severity Reaction Status Date / Time adhesive Allergy Itching Verified 08/28/19 17:14 codeine Allergy Itching Verified 08/28/19 17:14 rocuronium Allergy Anaphylactic Verified 08/28/19 17:14 Shock Home Meds: Home Meds Losartan Potassium 1 tab PO DAILY 12/16/18 [History] Metoprolol Succinate 1 tab PO DAILY 12/16/18 [History] Omeprazole Magnesium [Prilosec Otc] 1 tab PO DAILY 01/10/19 [History] Hydrocodone/Acetaminophen [Hydrocodon-Acetaminophn 10-325] 1 tab PO ASDIRECTED 05/29/19 [History] Past Medical History HEENT History: Reports: Other (See Below) Other HEENT History: top and bottom dentures Cardiovascular History: Reports: Hypertension Respiratory History: Reports: Other (See Below) Other Respiratory History: self diagnosed sleep apnea Gastrointestinal History: Reports: GERD, Hepatitis Other Gastrointestinal History: hx hepatitis C with treatment Genitourinary History: Reports: None Musculoskeletal History: Reports: Back Pain, Chronic, Neck Pain, Chronic Neurological History: Reports: None Psychiatric History: Reports: None Endocrine/Metabolic History: Reports: None Hematologic History: Reports: None Immunologic History: Reports: None Oncologic (Cancer) History: Reports: None Dermatologic History: Reports: Psoriasis - Infectious Disease History Infectious Disease History: Reports: Chicken Pox, Hepatitis C Other Infectious Disease History: treated for Hep C - Past Surgical History Head Surgeries/Procedures: Reports: None HEENT Surgical History: Reports: Naso-Sinus Surgery Cardiovascular Surgical History: Reports: None Respiratory Surgical History: Reports: None GI Surgical History: Reports: Cholecystectomy, Hernia, Inguinal, Hernia Repair/ Other Other GI Surgeries/Procedures: christine inguinal hernia repair, hiatal hernia repair x7 Male Surgical History: Reports: None Endocrine Surgical History: Reports: None Neurological Surgical History: Reports: C-Spine, Spinal Fusion Other Neurological Surgeries/Procedures: back surgery x8, neck surgery Musculoskeletal Surgical History: Reports: Arthroscopic Knee, Shoulder Surgery, Other (See Below) Other Musculoskeletal Surgeries/Procedures:: nekc sx, 7x back sx Oncologic Surgical History: Reports: None Dermatological Surgical History: Reports: None Social & Family History - Family History Family Medical History: Noncontributory - Tobacco Use Smoking Status *Q: Current Every Day Smoker Years of Tobacco use: 30 Packs/Tins Daily: 0.5 - Recreational Drug Use Recreational Drug Use: No ED ROS GENERAL - Review of Systems Review Of Systems: Comprehensive ROS is negative, except as noted in HPI. Constitutional: Denies: Fever, Chills ED EXAM, GENERAL - Physical Exam Exam: See Below Exam Limited By: No Limitations General Appearance: Alert, No Apparent Distress Ears: Normal External Exam Nose: Normal Inspection Throat/Mouth: Normal Inspection Head: Atraumatic, Normocephalic Neck: Normal Inspection Respiratory/Chest: No Respiratory Distress, Lungs Clear, Normal Breath Sounds Cardiovascular: Normal Peripheral Pulses, Regular Rate, Rhythm, No Edema, No Murmur GI/Abdominal: Normal Bowel Sounds, Soft Back Exam: Normal Inspection Extremities: Normal Inspection Neurological: Alert, Oriented Psychiatric: Normal Affect, Normal Mood Skin Exam: Warm, Dry, Intact, Normal Color, No Rash Lymphatic: No Adenopathy Course - Vital Signs Last Recorded V/S: Last Vital Signs Temp 36.9 C 08/28/19 17:12 Pulse 62 08/28/19 17:12 Resp 22 H 08/28/19 17:12 BP 173/104 H 08/28/19 17:12 Pulse Ox 100 08/28/19 17:12 - Orders/Labs/Meds Orders: Active Orders 24 hr Category Date Time Status EKG 12 Lead [EKG Documentation Completion] [RC] STAT Care 08/28/19 17:26 Active CORONAVIRUS COVID-19 PCR PHL Stat Lab 08/28/19 18:17 Ordered PTT,PARTIAL THROMBOPLSTIN TIME [COAG] Q6H Lab 08/29/19 00:15 Ordered PTT,PARTIAL THROMBOPLSTIN TIME [COAG] Q6H Lab 08/29/19 06:15 Ordered PTT,PARTIAL THROMBOPLSTIN TIME [COAG] Q6 Lab 08/29/19 12:15 Ordered PTT,PARTIAL THROMBOPLSTIN TIME [COAG] Q6 Lab 08/29/19 18:15 Ordered PTT,PARTIAL THROMBOPLSTIN TIME [COAG] Q6 Lab 08/30/19 00:15 Ordered PTT,PARTIAL THROMBOPLSTIN TIME [COAG] Q6 Lab 08/30/19 06:15 Ordered Heparin Sod,Pork In 0.45% Nacl [Heparin-1/2Ns 25,000 Med 08/28/19 18:15 Ordered Units/500] 25,000 unit in 500 ml IV TITRATE Nitroglycerin [Nitrostat] Med 08/28/19 18:14 Ordered 0.4 mg SL Q5M PRN Nitroglycerin/D5W [Nitroglycerin 25 MG/D5W 250 ML] Med 08/28/19 18:30 Active 25 mg in 250 ml IV TITRATE Medication Orders Heparin Sodium/Sodium Chloride (Heparin-1/2ns 25,000 Units/500) 25,000 unit in 500 mls @ 23.297 mls/hr IV TITRATE ALVIN; Protocol Last Admin: 08/28/19 18:48 Dose: 12 units/kg/hr, 23.297 mls/hr Nitroglycerin/Dextrose (Nitroglycerin 25 Mg/D5w 250 Ml) 25 mg in 250 mls @ 3 mls/hr IV TITRATE ALVIN; Protocol Last Admin: 08/28/19 18:46 Dose: 5 mcg/min, 3 mls/hr Nitroglycerin (Nitrostat) 0.4 mg SL Q5M PRN PRN Reason: Chest Pain Labs: Laboratory Tests 08/28/19 08/28/19 08/28/19 Range/Units 17:28 17:28 17:28 WBC 9.51 (4.0-11.0) K/uL RBC 4.06 L (4.50-5.90) M/uL Hgb 13.5 (13.0-17.0) g/dL Hct 39.6 (38.0-50.0) % MCV 97.5 (80.0-98.0) fL MCH 33.3 H (27.0-32.0) pg MCHC 34.1 (31.0-37.0) g/dL RDW Std Deviation 43.9 (28.0-62.0) fl RDW Coeff of Roger 12 (11.0-15.0) % Plt Count 258 (150-400) K/uL MPV 10.60 (7.40-12.00) fL Neut % (Auto) 45.3 L (48.0-80.0) % Lymph % (Auto) 39.2 (16.0-40.0) % Mcintosh % (Auto) 8.9 (0.0-15.0) % Eos % (Auto) 6.4 (0.0-7.0) % Baso % (Auto) 0.2 (0.0-1.5) % Neut # (Auto) 4.3 (1.4-5.7) K/uL Lymph # (Auto) 3.7 H (0.6-2.4) K/uL Mcintosh # (Auto) 0.9 H (0.0-0.8) K/uL Eos # (Auto) 0.6 (0.0-0.7) K/uL Baso # (Auto) 0.0 (0.0-0.1) K/uL Nucleated RBC % 0.0 /100WBC Nucleated RBCs # 0 K/uL INR APTT 24.4 (18.6-31.3) SEC Sodium 140 (136-148) mmol/L Potassium 3.8 (3.5-5.1) mmol/L Chloride 105 (98-107) mmol/L Carbon Dioxide 24.3 (21.0-32.0) mmol/L BUN 8 (7.0-18.0) mg/dL Creatinine 1.2 (0.8-1.3) mg/dL Est Cr Clr Drug Dosing 82.15 mL/min Estimated GFR (MDRD) > 60.0 ml/min Glucose 106 (74-106) mg/dL Calcium 9.2 (8.5-10.1) mg/dL Total Bilirubin 0.4 (0.2-1.0) mg/dL AST 35 (15-37) IU/L ALT 24 (14-63) IU/L Alkaline Phosphatase 87 (46-116) U/L Troponin I 2.445 H* (0.000-0.056) ng/mL Total Protein 7.9 (6.4-8.2) g/dL Albumin 4.3 (3.4-5.0) g/dL Globulin 3.6 (2.6-4.0) g/dL Albumin/Globulin Ratio 1.2 (0.9-1.6) 08/28/19 Range/Units 17:28 WBC (4.0-11.0) K/uL RBC (4.50-5.90) M/uL Hgb (13.0-17.0) g/dL Hct (38.0-50.0) % MCV (80.0-98.0) fL MCH (27.0-32.0) pg MCHC (31.0-37.0) g/dL RDW Std Deviation (28.0-62.0) fl RDW Coeff of Roger (11.0-15.0) % Plt Count (150-400) K/uL MPV (7.40-12.00) fL Neut % (Auto) (48.0-80.0) % Lymph % (Auto) (16.0-40.0) % Mcintosh % (Auto) (0.0-15.0) % Eos % (Auto) (0.0-7.0) % Baso % (Auto) (0.0-1.5) % Neut # (Auto) (1.4-5.7) K/uL Lymph # (Auto) (0.6-2.4) K/uL Mcintosh # (Auto) (0.0-0.8) K/uL Eos # (Auto) (0.0-0.7) K/uL Baso # (Auto) (0.0-0.1) K/uL Nucleated RBC % /100WBC Nucleated RBCs # K/uL INR 1.01 APTT (18.6-31.3) SEC Sodium (136-148) mmol/L Potassium (3.5-5.1) mmol/L Chloride (98-107) mmol/L Carbon Dioxide (21.0-32.0) mmol/L BUN (7.0-18.0) mg/dL Creatinine (0.8-1.3) mg/dL Est Cr Clr Drug Dosing mL/min Estimated GFR (MDRD) ml/min Glucose (74-106) mg/dL Calcium (8.5-10.1) mg/dL Total Bilirubin (0.2-1.0) mg/dL AST (15-37) IU/L ALT (14-63) IU/L Alkaline Phosphatase (46-116) U/L Troponin I (0.000-0.056) ng/mL Total Protein (6.4-8.2) g/dL Albumin (3.4-5.0) g/dL Globulin (2.6-4.0) g/dL Albumin/Globulin Ratio (0.9-1.6) Meds: Medications Generic Name Dose Route Start Last Admin Trade Name Freq PRN Reason Stop Dose Admin Heparin Sodium/Sodium Chloride 25,000 unit in 500 mls @ 23.297 mls/hr 18:15 08/28/19 18:48 Heparin-1/2ns 25,000 Units/500 IV 12 units/kg/hr TITRATE ALVIN 23.297 mls/hr Administration Protocol 12 UNITS/KG/HR Nitroglycerin/Dextrose 25 mg in 250 mls @ 3 mls/hr 08/28/19 18:30 08/28/19 18 :46 Nitroglycerin 25 Mg/D5w 250 Ml IV 5 mcg/min TITRATE ALVIN 3 mls/hr Administration Protocol 5 MCG/MIN Nitroglycerin 0.4 mg 08/28/19 18:14 Nitrostat SL Q5M PRN Chest Pain Discontinued Medications Generic Name Dose Route Start Last Admin Trade Name Freq PRN Reason Stop Dose Admin Aspirin 324 mg 08/28/19 18:38 08/28/19 18:42 Aspirin PO 08/28/19 18:39 324 mg ONETIME ONE Administration Heparin Sodium (Porcine) 4,000 units 08/28/19 18:14 08/28/19 18:24 Heparin Sodium IVPUSH 08/28/19 18:15 Not Given ONETIME ONE Heparin Sodium (Porcine) 5,000 units 08/28/19 18:24 08/28/19 18:44 Heparin Sodium IVPUSH 08/28/19 18:25 5,000 units ONETIME ONE Administration Nitroglycerin/Dextrose Confirm 08/28/19 18:25 Nitroglycerin 25 Mg/D5w 250 Ml Administered 08/28/19 18:26 Dose 25 mg in 250 mls @ as directed .ROUTE .STK-MED ONE Lorazepam 0.5 mg 08/28/19 18:39 08/28/19 18:45 Ativan IVPUSH 08/28/19 18:40 0.5 mg ONETIME ONE Administration Ondansetron HCl 4 mg 08/28/19 18:39 08/28/19 18:45 Zofran IVPUSH 08/28/19 18:40 4 mg ONETIME ONE Administration - Re-Assessments/Exams Free Text/Narrative Re-Assessment/Exam: 08/28/[address] Sherrie Mujica regarding EKG. Free Text/Narrative Re-Assessment/Exam: 08/28/19 18:[address] Larson, cardiology at [facility] in [place]. Serial EKGs viewed by same along with troponin level. Order for 5000 units heparin bolus along with heparin drip, nitroglycerin drip titrated to get blood pressure in the 1 teens, aspirin and transport. No tPa due to diffuse ST depression only on EKG. Transfer to ER. Same accepts patient in transfer. Patient is very scared and anxious. He states he is still having off-and-on chest pain, last a 7 out of 10, but not currently. Ativan and Zofran. Free Text/Narrative Re-Assessment/Exam: 08/28/19 18:[address] [facility]. Dr. Larson will see patient in the ER. BP 154/102 1700 flight team here and patient being prepared for transfer. Noted accelerated ventricular rhythm on monitor. Patient has some chest pain but "much better than before". The rhythm change did provoke a feeling of apprehension. 12 lead EKG text to Dr. Larson. Recommended continue with treatment plan and transfer. Additional 0.5mg Ativan IV. Departure - Departure Time of Disposition: 19:34 Disposition: DC/Tfer to Acute Hospital 02 Reason for Transfer *Q: Other (cardiology evaluation for possible PCI) Condition: Fair Clinical Impression: NSTEMI (non-ST elevated myocardial infarction), Acute coronary syndrome, Ventricular dysrhythmia Sepsis Event Note (ED) - Evaluation Sepsis Screening Result: No Definite Risk - Focused Exam Vital Signs: Vital Signs Temp Pulse Resp BP Pulse Ox 08/28/19 17:12 36.9 C 62 22 H 173/104 H 100 - My Orders Last 24 Hours: My Active Orders 08/28/19 18:14 Nitroglycerin [Nitrostat] 0.4 mg SL Q5M PRN 08/28/19 18:15 Heparin Sod,Pork In 0.45% Nacl [Heparin-1/2Ns 25,000 Units/500] 25,000 unit in 500 ml IV TITRATE 08/28/19 18:17 CORONAVIRUS COVID-19 PCR PHL Stat 08/28/19 18:30 Nitroglycerin/D5W [Nitroglycerin 25 MG/D5W 250 ML] 25 mg in 250 ml IV TITRATE 08/29/19 00:15 PTT,PARTIAL THROMBOPLSTIN TIME [COAG] Q6H 08/29/19 06:15 PTT,PARTIAL THROMBOPLSTIN TIME [COAG] Q6H 08/29/19 12:15 PTT,PARTIAL THROMBOPLSTIN TIME [COAG] Q6H 08/29/19 18:15 PTT,PARTIAL THROMBOPLSTIN TIME [COAG] Q6H 08/30/19 00:15 PTT,PARTIAL THROMBOPLSTIN TIME [COAG] Q6H 08/30/19 06:15 PTT,PARTIAL THROMBOPLSTIN TIME [COAG] Q6H - Assessment/Plan Last 24 Hours: My Active Orders 08/28/19 18:14 Nitroglycerin [Nitrostat] 0.4 mg SL Q5M PRN 08/28/19 18:15 Heparin Sod,Pork In 0.45% Nacl [Heparin-1/2Ns 25,000 Units/500] 25,000 unit in 500 ml IV TITRATE 08/28/19 18:17 CORONAVIRUS COVID-19 PCR PHL Stat 08/28/19 18:30 Nitroglycerin/D5W [Nitroglycerin 25 MG/D5W 250 ML] 25 mg in 250 ml IV TITRATE 08/29/19 00:15 PTT,PARTIAL THROMBOPLSTIN TIME [COAG] Q6H 08/29/19 06:15 PTT,PARTIAL THROMBOPLSTIN TIME [COAG] Q6H 08/29/19 12:15 PTT,PARTIAL THROMBOPLSTIN TIME [COAG] Q6H 08/29/19 18:15 PTT,PARTIAL THROMBOPLSTIN TIME [COAG] Q6H 08/30/19 00:15 PTT,PARTIAL THROMBOPLSTIN TIME [COAG] Q6H 08/30/19 06:15 PTT,PARTIAL THROMBOPLSTIN TIME [COAG] Q6H
== END 2019-08-28 19:35 ==
LOC: MW.ED 17:09
DX: I21.4 Non-ST elevation (NSTEMI) myocardial infarction (principal); I24.9 Acute ischemic heart disease, unspecified; I49.8 Other specified cardiac arrhythmias; I10 Essential (primary) hypertension; K21.9 Gastro-esophageal reflux disease without esophagitis; F17.210 Nicotine dependence, cigarettes, uncomplicated; Z79.899 Other long term (current) drug therapy; Z88.8 Allergy status to other drugs, medicaments and biological substances; Z88.5 Allergy status to narcotic agent; Z91.048 Other nonmedicinal substance allergy status
CPT/HCPCS: 36415; 80053; 84484; 85025; 85610; 85730; 87635; 93005; 96365; 96368; 96375; 99285; A9270; J1644; J2060; J2405; J3490; U0002

== ENCOUNTER 2019-10-02 12:39 | Emergency (ER) | payer BC ==
[2019-10-02] MEDS ORDERED: Sodium Chloride 0.9% 10 ML Syringe FLUSH PRN (13:05)
[2019-10-02] MEDS ORDERED: Sodium Chloride 0.9% 2.5 ML Syringe FLUSH PRN (13:05)
--- NOTE | 2019-10-02 13:17 | EDM.PDOC ---
ED HPI GENERAL MEDICAL PROBLEM - General Chief Complaint: General Stated Complaint: SHORTNESS OF BREATH Time Seen by Provider: 10/02/19 12:40 Source of Information: Reports: Patient History Limitations: Reports: No Limitations - History of Present Illness INITIAL COMMENTS - FREE TEXT/NARRATIVE: Presents reporting right-sided chest pain and mild shortness of breath the patient states that 3 days ago on the he noticed a "knot" behind his left knee as well as bruising. It was nonpainful and he did not injure himself. There was no redness or leg swelling and he was not feverish. This morning at 4:30 AM he was woken with some right-sided sharp chest pain that radiated to the back. However the pain was mild and so he got up and went to work as usual. 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 He became alarmed and called his orthopedic designer who suggested he come to the emergency room for further evaluation. I had seen the patient in the emergency room on 08/28/2019. That occasion he presented with chest pain and not feeling well, hypertension. His EKG indicated diffuse ST depressions and his troponin was 2.44. He was transferred to [facility] under the services of Dr. Larson for definitive management. Today he tells me he had a coronary stent placed there. His stay was uncomplicated and he has been chest pain-free until this morning. On August 04, 2019 he had what sounds like a microdiscectomy or laminectomy by Dr. Oneill, neurosurgery in [facility]. He developed a postop wound infection and is currently on daily IV antibiotics via PICC line. - Related Data Allergies Allergy/AdvReac Type Severity Reaction Status Date / Time adhesive Allergy Itching Verified 10/02/19 12:56 codeine Allergy Itching Verified 10/02/19 12:56 rocuronium Allergy Anaphylactic Verified 10/02/19 12:56 Shock Home Meds: Home Meds Losartan Potassium 1 tab PO DAILY 12/16/18 [History] Metoprolol Succinate 1 tab PO DAILY 12/16/18 [History] Omeprazole Magnesium [Prilosec Otc] 1 tab PO DAILY 01/10/19 [History] Hydrocodone/Acetaminophen [Hydrocodon-Acetaminophn 10-325] 1 tab PO ASDIRECTED 05/29/19 [History] Past Medical History HEENT History: Reports: Other (See Below) Other HEENT History: top and bottom dentures Cardiovascular History: Reports: Hypertension Respiratory History: Reports: Other (See Below) Other Respiratory History: self diagnosed sleep apnea Gastrointestinal History: Reports: GERD, Hepatitis Other Gastrointestinal History: hx hepatitis C with treatment Genitourinary History: Reports: None Musculoskeletal History: Reports: Back Pain, Chronic, Neck Pain, Chronic Neurological History: Reports: None Psychiatric History: Reports: None Endocrine/Metabolic History: Reports: None Hematologic History: Reports: None Immunologic History: Reports: None Oncologic (Cancer) History: Reports: None Dermatologic History: Reports: Psoriasis - Infectious Disease History Infectious Disease History: Reports: Chicken Pox, Hepatitis C Other Infectious Disease History: treated for Hep C - Past Surgical History Head Surgeries/Procedures: Reports: None HEENT Surgical History: Reports: Naso-Sinus Surgery Cardiovascular Surgical History: Reports: None Respiratory Surgical History: Reports: None GI Surgical History: Reports: Cholecystectomy, Hernia, Inguinal, Hernia Repair/Other Other GI Surgeries/Procedures: christine inguinal hernia repair, hiatal hernia repair x7 Male Surgical History: Reports: None Endocrine Surgical History: Reports: None Neurological Surgical History: Reports: C-Spine, Spinal Fusion Other Neurological Surgeries/Procedures: back surgery x8, neck surgery Musculoskeletal Surgical History: Reports: Arthroscopic Knee, Shoulder Surgery, Other (See Below) Other Musculoskeletal Surgeries/Procedures:: nekc sx, 7x back sx Oncologic Surgical History: Reports: None Dermatological Surgical History: Reports: None Social & Family History - Family History Family Medical History: Noncontributory ED ROS GENERAL - Review of Systems Review Of Systems: Comprehensive ROS is negative, except as noted in HPI. ED EXAM, GENERAL - Physical Exam Exam: See Below Exam Limited By: No Limitations General Appearance: Alert, No Apparent Distress Ears: Normal External Exam Nose: Normal Inspection Throat/Mouth: Normal Inspection Head: Atraumatic, Normocephalic Neck: Normal Inspection Respiratory/Chest: No Respiratory Distress, Lungs Clear, Normal Breath Sounds Cardiovascular: Normal Peripheral Pulses, Regular Rate, Rhythm GI/Abdominal: Soft Back Exam: Normal Inspection Extremities: Normal Inspection Neurological: Alert, Oriented, Normal Cognition, Other Psychiatric: Normal Affect Skin Exam: Warm, Dry, Intact, Normal Color, No Rash, Other (Ecchymosis in the left popliteal fossa, no palpable mass. Patient shows me a picture on his cell phone from 2 days ago of an obvious mass in the area.) Course - Vital Signs Last Recorded V/S: Last Vital Signs Temp 36.0 C L 10/02/19 12:51 Pulse 76 10/02/19 13:50 Resp 17 10/02/19 13:50 BP 160/83 H 10/02/19 13:50 Pulse Ox 97 10/02/19 13:50 - Orders/Labs/Meds Orders: Active Orders 24 hr Category Date Time Status EKG 12 Lead [EKG Documentation Completion] [RC] STAT Care 10/02/19 15:26 Active Sodium Chloride 0.9% [Saline Flush] Med 10/02/19 13:05 Active 10 ml FLUSH ASDIRECTED PRN Sodium Chloride 0.9% [Saline Flush] Med 10/02/19 13:05 Active 2.5 ml FLUSH ASDIRECTED PRN Saline Lock Insert [OM.PC] Stat Oth 10/02/19 13:05 Ordered Medication Orders Sodium Chloride (Saline Flush) 10 ml FLUSH ASDIRECTED PRN PRN Reason: Keep Vein Open Last Admin: 10/02/19 13:17 Dose: 10 ml Documented by: DILLON Sodium Chloride (Saline Flush) 2.5 ml FLUSH ASDIRECTED PRN PRN Reason: Keep Vein Open Last Admin: 10/02/19 13:17 Dose: 2.5 ml Documented by: DILLON Labs: Laboratory Tests 10/02/19 10/02/19 10/02/19 Range/Units 12:54 12:54 12:54 WBC 7.32 (4.0-11.0) K/uL RBC 3.56 L (4.50-5.90) M/uL Hgb 11.8 L (13.0-17.0) g/dL Hct 34.2 L (38.0-50.0) % MCV 96.1 (80.0-98.0) fL MCH 33.1 H (27.0-32.0) pg MCHC 34.5 (31.0-37.0) g/dL RDW Std Deviation 43.4 (28.0-62.0) fl RDW Coeff of Roger 12 (11.0-15.0) % Plt Count 200 (150-400) K/uL MPV 10.30 (7.40-12.00) fL Neut % (Auto) 49.2 (48.0-80.0) % Lymph % (Auto) 34.3 (16.0-40.0) % [place] % (Auto) 10.5 (0.0-15.0) % Eos % (Auto) 5.7 (0.0-7.0) % Baso % (Auto) 0.3 (0.0-1.5) % Neut # (Auto) 3.6 (1.4-5.7) K/uL Lymph # (Auto) 2.5 H (0.6-2.4) K/uL [place] # (Auto) 0.8 (0.0-0.8) K/uL Eos # (Auto) 0.4 (0.0-0.7) K/uL Baso # (Auto) 0.0 (0.0-0.1) K/uL Nucleated RBC % 0.0 /100WBC Nucleated RBCs # 0 K/uL INR 1.06 Sodium 141 (136-148) mmol/L Potassium 4.0 (3.5-5.1) mmol/L Chloride 106 (98-107) mmol/L Carbon Dioxide 21.1 (21.0-32.0) mmol/L BUN 9 (7.0-18.0) mg/dL Creatinine 1.1 (0.8-1.3) mg/dL Est Cr Clr Drug Dosing TNP Estimated GFR (MDRD) > 60.0 ml/min Glucose 93 (74-106) mg/dL Calcium 8.9 (8.5-10.1) mg/dL Total Bilirubin 0.5 (0.2-1.0) mg/dL AST 34 (15-37) IU/L ALT 37 (14-63) IU/L Alkaline Phosphatase 79 (46-116) U/L Troponin I < 0.050 (0.000-0.056) ng/mL Total Protein 7.2 (6.4-8.2) g/dL Albumin 3.9 (3.4-5.0) g/dL Globulin 3.3 (2.6-4.0) g/dL Albumin/Globulin Ratio 1.2 (0.9-1.6) Meds: Medications Generic Name Dose Route Start Last Admin Trade Name Ruth PRN Reason Stop Dose Admin Sodium Chloride 10 ml 10/02/19 13:05 10/02/19 13:17 Saline Flush FLUSH 10 ml ASDIRECTED PRN Administration Keep Vein Open Sodium Chloride 2.5 ml 10/02/19 13:05 10/02/19 13:17 Saline Flush FLUSH 2.5 ml ASDIRECTED PRN Administration Keep Vein Open Discontinued Medications Generic Name Dose Route Start Last Admin Trade Name Ruth PRN Reason Stop Dose Admin Iopamidol 75 ml 10/02/19 15:56 10/02/19 15:56 Isovue Multipack-370 (76%) IVPUSH 10/02/19 15:57 75 ml ONETIME STA Administration - Re-Assessments/Exams Free Text/Narrative Re-Assessment/Exam: 10/02/19 16:12 Symptoms have completely resolved. All of his lab and imaging is negative. Discussion with the patient that he is slightly anemic which could contribute to the symptoms he had. That should be explored with his primary care provider. He does admit that he has some stress with his job and his health issues and that anxiety may also be contributing to the symptoms he had. He agrees to see his primary care provider within the next week or two. Departure - Departure Time of Disposition: 16:14 Disposition: Home, Self-Care 01 Condition: Good Clinical Impression: Shortness of breath - Discharge Information Referrals: PCP,Unknown [Primary Care Provider] - Juan Young MD [Ordering Only Provider] - Forms: ED Department Discharge Additional Instructions: The following information is given to patients seen in the emergency department who are being discharged to home. This information is to outline your options for follow-up care. We provide all patients seen in our emergency department with a follow-up referral. The need for follow-up, as well as the timing and circumstances, are variable depending upon the specifics of your emergency department visit. If you don't have a primary care physician on staff, we will provide you with a referral. We always advise you to contact your personal physician following an emergency department visit to inform them of the circumstance of the visit and for follow-up with them and/or the need for any referrals to a consulting specialist. The emergency department will also refer you to a specialist when appropriate. This referral assures that you have the opportunity for follow-up care with a specialist. All of these measure are taken in an effort to provide you with optimal care, which includes your follow-up. Under all circumstances we always encourage you to contact your private physician who remains a resource for coordinating your care. When calling for follow-up care, please make the office aware that this follow-up is from your recent emergency room visit. If for any reason you are refused follow-up, please contact the [facility] Emergency Department at and asked to speak to the emergency department charge nurse. 1. Follow-up with Dr. Young to review your symptoms and blood counts. Lab, imaging and EKG are provided. Sepsis Event Note (ED) - Evaluation Sepsis Screening Result: No Definite Risk - Focused Exam Vital Signs: Vital Signs Temp Pulse Resp BP Pulse Ox 10/02/19 13:50 76 17 160/83 H 97 10/02/19 12:51 36.0 C L 72 18 152/87 H 98 - My Orders Last 24 Hours: My Active Orders 10/02/19 13:05 Sodium Chloride 0.9% [Saline Flush] 10 ml FLUSH ASDIRECTED PRN Sodium Chloride 0.9% [Saline Flush] 2.5 ml FLUSH ASDIRECTED PRN Saline Lock Insert [OM.PC] Stat - Assessment/Plan Last 24 Hours: My Active Orders 10/02/19 13:05 Sodium Chloride 0.9% [Saline Flush] 10 ml FLUSH ASDIRECTED PRN Sodium Chloride 0.9% [Saline Flush] 2.5 ml FLUSH ASDIRECTED PRN Saline Lock Insert [OM.PC] Stat
[2019-10-02 13:48] LABS: BLOOD UREA NITROGEN,BUN 9 mg/dL (7.0-18.0); CARBON DIOXIDE,CO2 21.1 mmol/L (21.0-32.0); CHLORIDE,CL 106 mmol/L (98-107); GLUCOSE RANDOM 93 mg/dL (74-106); SODIUM,NA 141 mmol/L (136-148)
--- NOTE | 2019-10-02 14:33 | US ---
Left lower extremity deep venous ultrasound: Duplex and color Doppler evaluation was obtained the left common femoral, superficial femoral, popliteal, posterior tibial and peroneal veins. Findings: Normal compression and Doppler blood flow is seen. No popliteal cyst is seen. Impression: 1. No evidence of deep venous thrombosis within the left lower extremity. 2. No popliteal cyst is seen. Diagnostic code #1 This report was dictated in MDT
--- NOTE | 2019-10-02 15:17 | CT ---
INDICATION: Shortness of breath. TECHNIQUE: CT chest PE was acquired with 75 cc Isovue 370 IV contrast. COMPARISON: None. FINDINGS: Heart and vasculature: Contrast opacification of the pulmonary arterial tree is adequate. No sign of pulmonary embolism. Heart size is normal. Thoracic aorta and pulmonary artery are normal in caliber. Lungs and pleural: No suspicious nodules or infiltrates. No pleural effusions, pleural thickening, or pneumothorax. Lymph nodes/mediastinum: No mediastinal, hilar, or axillary adenopathy. Thyroid gland is normal. Chest wall: No masses. Upper abdomen: Normal. Bones: Unremarkable for age. IMPRESSION: Unremarkable CT of the chest. No pulmonary embolism and the lungs are clear. Please note that all CT scans at this facility use dose modulation, iterative reconstruction, and/or weight-based dosing when appropriate to reduce radiation dose to as low as reasonably achievable. Dictated by Roberto Mackenzie MD @ Oct 02 2019 3:06PM Signed by Dr. Roberto Mackenzie @ Oct 02 2019 3:17PM
[2019-10-02] MEDS ORDERED: Iopamidol 755 MG/ML 500 ML Multipack Bottle IVPUSH STA (15:56)
== END 2019-10-02 16:27 | disposition home or self-care (01) ==
LOC: MW.ED 12:39
DX: R06.02 Shortness of breath (principal); I10 Essential (primary) hypertension; K21.9 Gastro-esophageal reflux disease without esophagitis; Z79.899 Other long term (current) drug therapy; Z88.5 Allergy status to narcotic agent; Z88.8 Allergy status to other drugs, medicaments and biological substances; Z91.048 Other nonmedicinal substance allergy status
CPT/HCPCS: 36415; 71275; 71275-26; 80053; 84484; 85025; 85610; 93005; 93971-26-LT; 93971-LT; 99283; 99285-25; Q9967

== ENCOUNTER 2019-10-13 10:40 | Emergency (ER) | payer BC ==
[2019-10-13] MEDS ORDERED: Sodium Chloride 0.9% 10 ML Syringe FLUSH PRN (10:45)
[2019-10-13] MEDS ORDERED: Sodium Chloride 0.9% 2.5 ML Syringe FLUSH PRN (10:45)
[2019-10-13] MEDS ORDERED: Nitroglycerin 0.4 MG Tab.SL SL PRN (10:52)
--- NOTE | 2019-10-13 10:54 | EDM.PDOC ---
ED HPI GENERAL MEDICAL PROBLEM - General Chief Complaint: Chest Pain Stated Complaint: CHEST PAIN Time Seen by Provider: 10/13/19 10:53 Source of Information: Reports: Patient History Limitations: Reports: No Limitations - History of Present Illness INITIAL COMMENTS - FREE TEXT/NARRATIVE: HISTORY AND PHYSICAL: History of present illness: Patient is a 54-year-old male who presents to the emergency room with complaints of hypertension and right sided chest pain that goes into his neck and shoulder. Describes this pain as a sharp squeezing sensation which started last night, was woken up from sleep. He was encouraged to come to the emergency room for evaluation from nursing staff, states he would not have brought himself here. patient denies any fever, chills, headache, change in vision, syncope or near syncope. Denies any back pain, shortness of breath or cough. Denies any abdominal pain, nausea, vomiting, diarrhea, constipation or dysuria. Patient has been eating and drinking appropriately. 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 He had lumbar fusion back surgery in July 2019. He states he was seen in our ED on 08/30/19 and transferred to [facility] for NSTEMI. While he was in [facility] he received a cardiac stent, during the procedure and pulled over from the table and his back stitches were ripped open and that is how his hardware became infected. Past medical history of hypertension, SC with stent, and chronic back pain. Takes Brilinta daily. Has taken his medications today - medication compliant. PCP Dr Young at [facility]. Review of systems: As per history of present illness and below otherwise all systems reviewed and negative. Past medical history: As per history of present illness and as reviewed below otherwise noncontributory. Surgical history: As per history of present illness and as reviewed below otherwise noncontributory. Social history: See social history for further information Family history: As per history of present illness and as reviewed below otherwise noncontributory. Physical exam: General: Developed and well nourished 54-year-old male. Alert and oriented. Nontoxic-appearing and in no acute distress. HEENT: Atraumatic, normocephalic, pupils equal and reactive bilaterally, negative for conjunctival pallor or scleral icterus, mucous membranes moist, TMs normal bilaterally, throat clear, neck supple, nontender, trachea midline. No drooling or trismus noted. No meningeal signs. No hot potato voice noted. Lungs: Clear to auscultation, breath sounds equal bilaterally, chest nontender. Heart: S1S2, regular rate and rhythm without overt murmur Abdomen: Soft, nondistended, nontender. Negative for masses or hepatosplenomegaly. Negative for costovertebral tenderness. Pelvis: Stable nontender. Skin: Patches of psoriasis noted. Upper lumbar healing incision site noted no surrounding fluctuance or redness. Otherwise skin is intact, warm, dry. No lesions or rashes noted. Extremities: Atraumatic, moves all extremities per self without difficulty or deficits, negative for cords or calf pain. Neurovascular unremarkable. Neuro: Awake, alert, oriented. Cranial nerves II through XII unremarkable. Cerebellum unremarkable. Motor and sensory unremarkable throughout. Exam nonfocal. Notes: After the nitro patient states that his chest/neck pain is gone. He does complain of some chronic back pain which he states he typically takes his Letcher at home by this time. We will give him his home dose while here in the emergency room. Patient reports that he is pain-free and feels well. His lab work is unremarkable. Chest x-ray shows no acute findings. We did discuss admission versus close follow-up. He declines admission at this time stating he will be here tomorrow morning for a another dose of his Rocephin. He is aware of the risks of being discharged without serial troponin, including . We discussed signs and symptoms that would prompt him to return to the emergency room. Follow-up and supportive care measures were reviewed and discussed. Voices understanding and is agreeable to plan of care. Denies any further questions or concerns at this time. Diagnostics: CBC, CMP, Troponin, EKG, CXR, Lactate, BC x 2 Therapeutics: Aspirin, Nitro, Letcher Prescription: None Impression: Chest pain Plan: 1. Your initial lab work was within normal limites. You declined admission. Please continue to monitor your symptoms. If your symptoms should worsen, new symptoms develop or any of the signs and symptoms we discussed should arise please return to the emergency room or call 911 (if needed). 2. Follow up for your Rocephin infusion tomorrow. 3. Call Dr Ibarra' office Tuesday to schedule a follow up appointment as we discussed. Definitive disposition and diagnosis as appropriate pending reevaluation and review of above. Chest Pain Score (Numeric/FACES): 4 - Related Data Allergies Allergy/AdvReac Type Severity Reaction Status Date / Time adhesive Allergy Itching Verified 10/13/19 10:58 codeine Allergy Itching Verified 10/13/19 10:58 rocuronium Allergy Anaphylactic Verified 10/13/19 10:58 Shock Home Meds: Home Meds Losartan Potassium 1 tab PO DAILY 12/16/18 [History] Metoprolol Succinate 1 tab PO DAILY 12/16/18 [History] Omeprazole Magnesium [Prilosec Otc] 1 tab PO DAILY 01/10/19 [History] Hydrocodone/Acetaminophen [Hydrocodon-Acetaminophn 10-325] 1 tab PO ASDIRECTED 05/29/19 [History] Ticagrelor [Brilinta] 90 mg PO DAILY 10/13/19 [History] atorvaSTATin Calcium [Atorvastatin Calcium] 40 mg PO DAILY 10/13/19 [History] buPROPion [buPROPion XL] 150 mg PO DAILY 10/13/19 [History] Past Medical History HEENT History: Reports: Other (See Below) Other HEENT History: top and bottom dentures Cardiovascular History: Reports: Hypertension Respiratory History: Reports: Other (See Below) Other Respiratory History: self diagnosed sleep apnea Gastrointestinal History: Reports: GERD, Hepatitis Other Gastrointestinal History: hx hepatitis C with treatment Genitourinary History: Reports: None Musculoskeletal History: Reports: Back Pain, Chronic, Neck Pain, Chronic Neurological History: Reports: None Psychiatric History: Reports: None Endocrine/Metabolic History: Reports: None Hematologic History: Reports: None Immunologic History: Reports: None Oncologic (Cancer) History: Reports: None Dermatologic History: Reports: Psoriasis - Infectious Disease History Infectious Disease History: Reports: Chicken Pox, Hepatitis C Other Infectious Disease History: treated for Hep C - Past Surgical History Head Surgeries/Procedures: Reports: None HEENT Surgical History: Reports: Naso-Sinus Surgery Cardiovascular Surgical History: Reports: None Respiratory Surgical History: Reports: None GI Surgical History: Reports: Cholecystectomy, Hernia, Inguinal, Hernia Repair/Other Other GI Surgeries/Procedures: christine inguinal hernia repair, hiatal hernia repair x7 Male Surgical History: Reports: None Endocrine Surgical History: Reports: None Neurological Surgical History: Reports: C-Spine, Spinal Fusion Other Neurological Surgeries/Procedures: back surgery x8, neck surgery Musculoskeletal Surgical History: Reports: Arthroscopic Knee, Shoulder Surgery, Other (See Below) Other Musculoskeletal Surgeries/Procedures:: nekc sx, 7x back sx Oncologic Surgical History: Reports: None Dermatological Surgical History: Reports: None Social & Family History - Family History Family Medical History: Noncontributory ED ROS GENERAL - Review of Systems Review Of Systems: Comprehensive ROS is negative, except as noted in HPI. ED EXAM, GENERAL - Physical Exam Exam: See Below (See dictation) Course - Vital Signs Last Recorded V/S: Last Vital Signs Temp 97.1 F 10/13/19 10:50 Pulse 56 L 10/13/19 11:48 Resp 16 10/13/19 11:48 BP 147/82 H 10/13/19 11:48 Pulse Ox 99 10/13/19 11:48 - Orders/Labs/Meds Orders: Active Orders 24 hr Category Date Time Status EKG Documentation Completion [RC] STAT Care 10/13/19 10:45 Active CULTURE BLOOD [BC] Stat Lab 10/13/19 11:07 Received CULTURE BLOOD [BC] Stat Lab 10/13/19 11:17 Received Nitroglycerin [Nitrostat] Med 10/13/19 10:52 Active 0.4 mg SL Q5M PRN Sodium Chloride 0.9% [Saline Flush] Med 10/13/19 10:45 Active 10 ml FLUSH ASDIRECTED PRN Sodium Chloride 0.9% [Saline Flush] Med 10/13/19 10:45 Active 2.5 ml FLUSH ASDIRECTED PRN Blood Culture x2 Reflex Set [OM.PC] Stat Oth 10/13/19 10:53 Ordered Saline Lock Insert [OM.PC] Stat Oth 10/13/19 10:45 Ordered Medication Orders Nitroglycerin (Nitrostat) 0.4 mg SL Q5M PRN PRN Reason: Chest Pain Last Admin: 10/13/19 11:08 Dose: 0.4 mg Documented by: ISRATATrey Sodium Chloride (Saline Flush) 10 ml FLUSH ASDIRECTED PRN PRN Reason: Keep Vein Open Last Admin: 10/13/19 11:17 Dose: 10 ml Documented by: ISRATATrey Sodium Chloride (Saline Flush) 2.5 ml FLUSH ASDIRECTED PRN PRN Reason: Keep Vein Open Last Admin: 10/13/19 11:17 Dose: 2.5 ml Documented by: ZBIGNIEW Labs: Laboratory Tests 10/13/19 10/13/19 10/13/19 Range/Units 11:07 11:07 11:07 WBC 5.77 (4.0-11.0) K/uL RBC 3.70 L (4.50-5.90) M/uL Hgb 12.1 L (13.0-17.0) g/dL Hct 36.7 L (38.0-50.0) % MCV 99.2 H (80.0-98.0) fL MCH 32.7 H (27.0-32.0) pg MCHC 33.0 (31.0-37.0) g/dL RDW Std Deviation 48.7 (28.0-62.0) fl RDW Coeff of Roger 14 (11.0-15.0) % Plt Count 209 (150-400) K/uL MPV 10.70 (7.40-12.00) fL Neut % (Auto) 47.3 L (48.0-80.0) % Lymph % (Auto) 33.1 (16.0-40.0) % Falls % (Auto) 11.4 (0.0-15.0) % Eos % (Auto) 7.5 H (0.0-7.0) % Baso % (Auto) 0.7 (0.0-1.5) % Neut # (Auto) 2.7 (1.4-5.7) K/uL Lymph # (Auto) 1.9 (0.6-2.4) K/uL Falls # (Auto) 0.7 (0.0-0.8) K/uL Eos # (Auto) 0.4 (0.0-0.7) K/uL Baso # (Auto) 0.0 (0.0-0.1) K/uL Nucleated RBC % 0.0 /100WBC Nucleated RBCs # 0 K/uL Lactate 1.0 (0.20-2.00) mmol/L Sodium 140 (136-148) mmol/L Potassium 4.4 (3.5-5.1) mmol/L Chloride 106 (98-107) mmol/L Carbon Dioxide 25.3 (21.0-32.0) mmol/L BUN 10 (7.0-18.0) mg/dL Creatinine 1.1 (0.8-1.3) mg/dL Est Cr Clr Drug Dosing 89.62 mL/min Estimated GFR (MDRD) > 60.0 ml/min Glucose 89 (74-106) mg/dL Calcium 8.4 L (8.5-10.1) mg/dL Total Bilirubin 0.4 (0.2-1.0) mg/dL AST 24 (15-37) IU/L ALT 30 (14-63) IU/L Alkaline Phosphatase 89 (46-116) U/L Troponin I < 0.050 (0.000-0.056) ng/mL Total Protein 7.4 (6.4-8.2) g/dL Albumin 3.8 (3.4-5.0) g/dL Globulin 3.6 (2.6-4.0) g/dL Albumin/Globulin Ratio 1.1 (0.9-1.6) Meds: Medications Generic Name Dose Route Start Last Admin Trade Name Freq PRN Reason Stop Dose Admin Nitroglycerin 0.4 mg 10/13/19 10:52 10/13/19 11:08 Nitrostat SL 0.4 mg Q5M PRN Administration Chest Pain Sodium Chloride 10 ml 10/13/19 10:45 10/13/19 11:17 Saline Flush FLUSH 10 ml ASDIRECTED PRN Administration Keep Vein Open Sodium Chloride 2.5 ml 10/13/19 10:45 10/13/19 11:17 Saline Flush FLUSH 2.5 ml ASDIRECTED PRN Administration Keep Vein Open Discontinued Medications Generic Name Dose Route Start Last Admin Trade Name Freq PRN Reason Stop Dose Admin Hydrocodone Bitart/Acetaminophen 2 tab 10/13/19 11:18 10/13/19 11:47 Letcher 325-5 Mg PO 10/13/19 11:19 2 tab ONETIME ONE Administration Aspirin 324 mg 10/13/19 11:12 10/13/19 11:16 Aspirin PO 10/13/19 11:13 324 mg ONETIME ONE Administration Departure - Departure Time of Disposition: 12:01 Disposition: Home, Self-Care 01 Clinical Impression: Chest pain, unspecified Qualifiers: Chest pain type: unspecified Qualified Code(s): R07.9 - Chest pain, unspecified Instructions: Nonspecific Chest Pain, Adult, [id number] Referrals: Juan Young MD [Primary Care Provider] - Forms: ED Department Discharge Additional Instructions: The following information is given to patients seen in the emergency department who are being discharged to home. This information is to outline your options for follow-up care. We provide all patients seen in our emergency department with a follow-up referral. The need for follow-up, as well as the timing and circumstances, are variable depending upon the specifics of your emergency department visit. If you don't have a primary care physician on staff, we will provide you with a referral. We always advise you to contact your personal physician following an emergency department visit to inform them of the circumstance of the visit and for follow-up with them and/or the need for any referrals to a consulting specialist. The emergency department will also refer you to a specialist when appropriate. This referral assures that you have the opportunity for follow-up care with a specialist. All of these measure are taken in an effort to provide you with optimal care, which includes your follow-up. Under all circumstances we always encourage you to contact your private physician who remains a resource for coordinating your care. When calling for follow-up care, please make the office aware that this follow-up is from your recent emergency room visit. If for any reason you are refused follow-up, please contact the [facility] Emergency Department at and asked to speak to the emergency department charge nurse. [facility] [address] [place] [id number] [address] Thank you for choosing the [facility] emergency department in [place] for your medical needs today. It was a pleasure caring for you. You were seen in the emergency department for chest pain and high blood pressure. 1. Your initial lab work was within normal limites. You declined admission. Please continue to monitor your symptoms. If your symptoms should worsen, new symptoms develop or any of the signs and symptoms we discussed should arise please return to the emergency room or call 911 (if needed). 2. Follow up for your Rocephin infusion tomorrow. 3. Call Dr Ibarra' office Tuesday to schedule a follow up appointment as we discussed. Sepsis Event Note (ED) - Evaluation Sepsis Screening Result: No Definite Risk - Focused Exam Vital Signs: Vital Signs Temp Pulse Resp BP BP Pulse Ox 10/13/19 11:48 56 L 16 147/82 H 99 10/13/19 11:16 54 L 16 173/93 H 96 10/13/19 11:08 163/92 H 10/13/19 10:50 97.1 F 54 L 18 176/99 H 97 - My Orders Last 24 Hours: My Active Orders 10/13/19 10:45 EKG Documentation Completion [RC] STAT Sodium Chloride 0.9% [Saline Flush] 10 ml FLUSH ASDIRECTED PRN Sodium Chloride 0.9% [Saline Flush] 2.5 ml FLUSH ASDIRECTED PRN Saline Lock Insert [OM.PC] Stat 10/13/19 10:52 Nitroglycerin [Nitrostat] 0.4 mg SL Q5M PRN 10/13/19 10:53 Blood Culture x2 Reflex Set [OM.PC] Stat 10/13/19 11:07 CULTURE BLOOD [BC] Stat 10/13/19 11:17 CULTURE BLOOD [BC] Stat - Assessment/Plan Last 24 Hours: My Active Orders 10/13/19 10:45 EKG Documentation Completion [RC] STAT Sodium Chloride 0.9% [Saline Flush] 10 ml FLUSH ASDIRECTED PRN Sodium Chloride 0.9% [Saline Flush] 2.5 ml FLUSH ASDIRECTED PRN Saline Lock Insert [OM.PC] Stat 10/13/19 10:52 Nitroglycerin [Nitrostat] 0.4 mg SL Q5M PRN 10/13/19 10:53 Blood Culture x2 Reflex Set [OM.PC] Stat 10/13/19 11:07 CULTURE BLOOD [BC] Stat 10/13/19 11:17 CULTURE BLOOD [BC] Stat
[2019-10-13] MEDS ORDERED: Aspirin 81 MG Tab.Chew PO ONE (11:12)
[2019-10-13] MEDS ORDERED: Acetaminophen/HYDROcodone 325-5 MG Tab PO ONE (11:18)
[2019-10-13 11:49] LABS: BLOOD UREA NITROGEN,BUN 10 mg/dL (7.0-18.0); CARBON DIOXIDE,CO2 25.3 mmol/L (21.0-32.0); CHLORIDE,CL 106 mmol/L (98-107); GLUCOSE RANDOM 89 mg/dL (74-106); POTASSIUM,K 4.4 mmol/L (3.5-5.1); SODIUM,NA 140 mmol/L (136-148)
--- NOTE | 2019-10-13 11:53 | CR ---
Chest: Portable view of the chest was obtained. Comparison: Previous chest x-ray of 09/22/18. Previous cervical spine surgery is noted. Heart size and mediastinum are normal. Lungs are clear with no acute parenchymal change. Previous resection of the distal left clavicle is noted. Impression: 1. Findings as noted above. 2. Nothing acute is appreciated on portable chest x-ray. Diagnostic code #2 This report was dictated in MDT
== END 2019-10-13 12:13 | disposition home or self-care (01) ==
LOC: MW.ED 10:40
DX: R07.9 Chest pain, unspecified (principal); I10 Essential (primary) hypertension; K21.9 Gastro-esophageal reflux disease without esophagitis; I25.2 Old myocardial infarction; Z88.5 Allergy status to narcotic agent; Z91.048 Other nonmedicinal substance allergy status; Z88.8 Allergy status to other drugs, medicaments and biological substances; Z95.5 Presence of coronary angioplasty implant and graft; Z79.899 Other long term (current) drug therapy
CPT/HCPCS: 36415; 71045; 80053; 83605; 84484; 85025; 87040; 93005; 99285; A9270; 99283

== ENCOUNTER 2020-05-24 14:31 | Emergency (ER) | payer BC ==
[2020-05-24] MEDS ORDERED: Sodium Chloride 0.9% 2.5 ML Syringe FLUSH PRN (14:40)
[2020-05-24] MEDS ORDERED: Sodium Chloride 0.9% 10 ML Syringe FLUSH PRN (14:40)
[2020-05-24] MEDS ORDERED: Aspirin 81 MG Tab.Chew PO ONE (14:42)
[2020-05-24] MEDS ORDERED: Aspirin 81 MG Tab.Chew ONE (14:43)
--- NOTE | 2020-05-24 14:44 | EDM.PDOC ---
ED HPI GENERAL MEDICAL PROBLEM - General Stated Complaint: CHEST PAIN Time Seen by Provider: 05/24/20 14:32 - History of Present Illness INITIAL COMMENTS - FREE TEXT/NARRATIVE: History of present illness: [] The patient complains of chest pain. Started 4 hours ago. It is very disturbing severe and sharp. It is very sudden. It happens multiple times in every few minute. And when it happens it lasts only a brief fraction of a second. Its in the left chest and sharp. Is not associated with nausea diaphoresis or dyspnea. The patient cannot bring it on with any activity. Nothing makes it better. Nitro and it did not improve. The patient had an AZ in August. He is on Brilinta. He had a stent. The patient has not had the sustained kind of discomfort that he had with that AZ but rather has the sharp brief pains today that are entirely different. Review of systems: As per history of present illness and below otherwise all systems reviewed and negative. Past medical history: As per history of present illness and as reviewed below otherwise noncontributory. Patient is treated for hypertension but not diabetes or cholesterol. Surgical history: As per history of present illness and as reviewed below otherwise noncontributory. Social history: No reported history of drug or alcohol abuse. The patient does smoke. Family history: As per history of present illness and as reviewed below otherwise noncontributory. Patient has a strong family history of heart attack. Physical exam: Constitutional - well developed, well-nourished and in no acute distress HEENT - normocephalic, no evidence of trauma - external nose and mouth normal - no mass in neck and no JVD - mucosae moist EYES - full EOM, PERRL, no icterus - no evidence of inflammation, injection, or drainage Respiratory - no respiratory distress, equal bilateral expansion, lungs clear to auscultation and no abnormal lung sounds Cardiovascular - Regular Rhythm with S1 and S2 appreciated and no murmur, gallop or rub. GI - abdomen soft without distension or organomegaly - normal bowel sounds - no guard or rebound Musculoskeletal no gross deformity of long bones or joints - no tenderness, swelling or edema Neurologic - Alert and oriented times four - CN II-XII grossly intact - motor sensory and coordination symmetrically normal Psychiatric - appropriate mood and affect with normal thought content Hematologic - No petechiae or purpura - mucosa appropriate color and sclera not pale - normal nail bed color and refill Integument - no rash or evidence of trauma - normal turgor Diagnostics: [] Therapeutics: [] Impression: [] Plan: [] Definitive disposition and diagnosis as appropriate pending reevaluation and review of above. Left Chest Pain Score (Numeric/FACES): 9 - Related Data Allergies Allergy/AdvReac Type Severity Reaction Status Date / Time adhesive Allergy Itching Verified 05/24/20 14:53 codeine Allergy Itching Verified 05/24/20 14:53 rocuronium Allergy Anaphylactic Verified 05/24/20 14:53 Shock Home Meds: Home Meds Losartan [Cozaar] 100 mg PO DAILY 05/24/20 [History] Metoprolol Succinate [Toprol XL] 200 mg PO DAILY 05/24/20 [History] Pantoprazole [ProTONIX] 40 mg PO DAILY 05/24/20 [History] Ticagrelor [Brilinta] 90 mg PO DAILY 05/24/20 [History] methylPREDNISolone [Medrol Dose Pack] 4 mg PO DAILY #21 tab 05/24/20 [Rx] Past Medical History HEENT History: Reports: Other (See Below) Other HEENT History: top and bottom dentures Cardiovascular History: Reports: Hypertension Respiratory History: Reports: Other (See Below) Other Respiratory History: self diagnosed sleep apnea Gastrointestinal History: Reports: GERD, Hepatitis Other Gastrointestinal History: hx hepatitis C with treatment Genitourinary History: Reports: None Musculoskeletal History: Reports: Back Pain, Chronic, Neck Pain, Chronic Neurological History: Reports: None Psychiatric History: Reports: None Endocrine/Metabolic History: Reports: None Hematologic History: Reports: None Immunologic History: Reports: None Oncologic (Cancer) History: Reports: None Dermatologic History: Reports: Psoriasis - Infectious Disease History Infectious Disease History: Reports: Chicken Pox, Hepatitis C Other Infectious Disease History: treated for Hep C - Past Surgical History Head Surgeries/Procedures: Reports: None HEENT Surgical History: Reports: Naso-Sinus Surgery Cardiovascular Surgical History: Reports: None Respiratory Surgical History: Reports: None GI Surgical History: Reports: Cholecystectomy, Hernia, Inguinal, Hernia Repair/Other Other GI Surgeries/Procedures: christine inguinal hernia repair, hiatal hernia repair x7 Male Surgical History: Reports: None Endocrine Surgical History: Reports: None Neurological Surgical History: Reports: C-Spine, Spinal Fusion Other Neurological Surgeries/Procedures: back surgery x8, neck surgery Musculoskeletal Surgical History: Reports: Arthroscopic Knee, Shoulder Surgery, Other (See Below) Other Musculoskeletal Surgeries/Procedures:: nekc sx, 7x back sx Oncologic Surgical History: Reports: None Dermatological Surgical History: Reports: None Social & Family History - Family History Family Medical History: No Pertinent Family History ED ROS GENERAL - Review of Systems Review Of Systems: Comprehensive ROS is negative, except as noted in HPI. ED EXAM, GENERAL - Physical Exam Exam: See Below Free Text/Narrative:: My physical exam as in the HPI #1 Interpretation EKG Interpretation Comments: EKG sinus rhythm heart rate 58 NJ 168 QT 439 QRS duration 90 ms. QRS axis 37 there is an RSR prime in V1 and V2 and T wave inversion in aVL with flattening in lead I. Compared to the most recent available prior EKG and there is no change impression no obvious injury Course - Vital Signs Text/Narrative:: Seen [address] showed atelectasis nothing else of significance. There is no pulmonary embolus. The patient's resting comfortably. Plan Medrol Dosepak and spirometry. Last Recorded V/S: Last Vital Signs Temp 36.6 C 05/24/20 14:36 Pulse 57 L 05/24/20 15:30 Resp 17 05/24/20 15:30 BP 154/90 H 05/24/20 15:30 Pulse Ox 98 05/24/20 15:30 - Orders/Labs/Meds Orders: Active Orders 24 hr Category Date Time Status EKG Documentation Completion [RC] AM Care 05/24/20 14:40 Active RT Incentive Spirometry [RC] ASDIRECTED Care 05/24/20 16:26 Active Sodium Chloride 0.9% [Saline Flush] Med 05/24/20 14:40 Active 10 ml FLUSH ASDIRECTED PRN Sodium Chloride 0.9% [Saline Flush] Med 05/24/20 14:40 Active 2.5 ml FLUSH ASDIRECTED PRN Saline Lock Insert [OM.PC] Stat Oth 05/24/20 14:40 Ordered Medication Orders Sodium Chloride (Sodium Chloride 0.9% 10 Ml Syringe) 10 ml FLUSH ASDIRECTED PRN PRN Reason: Keep Vein Open Last Admin: 05/24/20 14:48 Dose: 10 ml Documented by: ABEL Sodium Chloride (Sodium Chloride 0.9% 2.5 Ml Syringe) 2.5 ml FLUSH ASDIRECTED PRN PRN Reason: Keep Vein Open Last Admin: 05/24/20 14:48 Dose: 2.5 ml Documented by: ABEL Labs: Laboratory Tests 05/24/20 05/24/20 05/24/20 Range/Units 14:40 14:40 14:40 WBC 9.68 (4.0-11.0) K/uL RBC 3.91 L (4.50-5.90) M/uL Hgb 13.3 (13.0-17.0) g/dL Hct 39.3 (38.0-50.0) % MCV 100.5 H (80.0-98.0) fL MCH 34.0 H (27.0-32.0) pg MCHC 33.8 (31.0-37.0) g/dL RDW Std Deviation 48.3 (28.0-62.0) fl RDW Coeff of Roger 13 (11.0-15.0) % Plt Count 229 (150-400) K/uL MPV 10.70 (7.40-12.00) fL Neut % (Auto) 40.8 L (48.0-80.0) % Lymph % (Auto) 33.3 (16.0-40.0) % Braxton % (Auto) 9.5 (0.0-15.0) % Eos % (Auto) 16.2 H (0.0-7.0) % Baso % (Auto) 0.2 (0.0-1.5) % Neut # (Auto) 4.0 (1.4-5.7) K/uL Lymph # (Auto) 3.2 H (0.6-2.4) K/uL Braxton # (Auto) 0.9 H (0.0-0.8) K/uL Eos # (Auto) 1.6 H (0.0-0.7) K/uL Baso # (Auto) 0.0 (0.0-0.1) K/uL Nucleated RBC % 0.0 /100WBC Nucleated RBCs # 0 K/uL D-Dimer, Quantitative 0.53 H (0.0-0.50) mg/L FEU Sodium 141 (136-148) mmol/L Potassium 4.1 (3.5-5.1) mmol/L Chloride 104 (98-107) mmol/L Carbon Dioxide 26.7 (21.0-32.0) mmol/L BUN 17 (7.0-18.0) mg/dL Creatinine 1.2 (0.8-1.3) mg/dL Est Cr Clr Drug Dosing 82.15 mL/min Estimated GFR (MDRD) > 60.0 ml/min Glucose 116 H (74-106) mg/dL Calcium 8.7 (8.5-10.1) mg/dL Total Bilirubin 0.6 (0.2-1.0) mg/dL AST 16 (15-37) IU/L ALT 26 (14-63) IU/L Alkaline Phosphatase 79 (46-116) U/L Troponin I < 0.050 (0.000-0.056) ng/mL Total Protein 7.4 (6.4-8.2) g/dL Albumin 3.8 (3.4-5.0) g/dL Globulin 3.6 (2.6-4.0) g/dL Albumin/Globulin Ratio 1.1 (0.9-1.6) Meds: Medications Generic Name Dose Route Start Last Admin Trade Name Freq PRN Reason Stop Dose Admin Sodium Chloride 10 ml 05/24/20 14:40 05/24/20 14:48 Sodium Chloride 0.9% 10 Ml Syringe FLUSH 10 ml ASDIRECTED PRN Administration Keep Vein Open Sodium Chloride 2.5 ml 05/24/20 14:40 05/24/20 14:48 Sodium Chloride 0.9% 2.5 Ml Syringe FLUSH 2.5 ml ASDIRECTED PRN Administration Keep Vein Open Discontinued Medications Generic Name Dose Route Start Last Admin Trade Name Freq PRN Reason Stop Dose Admin Aspirin 324 mg 05/24/20 14:42 05/24/20 14:46 Aspirin 81 Mg Tab.Chew PO 05/24/20 14:43 162 mg ONETIME ONE Administration Aspirin Confirm 05/24/20 14:43 05/24/20 14:48 Aspirin 81 Mg Tab.Chew Administered 05/24/20 14:44 Not Given Dose 324 mg .ROUTE .STK-MED ONE Dexamethasone 10 mg 05/24/20 14:54 05/24/20 15:03 Dexamethasone 10 Mg/Ml Sdv IVPUSH 05/24/20 14:55 Not Given ONETIME ONE Dexamethasone 6 mg 05/24/20 15:01 05/24/20 15:02 Dexamethasone 10 Mg/Ml Sdv IVPUSH 05/24/20 15:02 6 mg ONETIME ONE Administration Iopamidol 100 ml 05/24/20 15:53 05/24/20 15:54 Iopamidol 755 Mg/Ml 500 Ml Multipack Bottle IVPUSH 05/24/20 15:54 100 ml ONETIME ONE Administration Departure - Departure Time of Disposition: 16:27 Disposition: Home, Self-Care 01 Condition: Good Clinical Impression: Pleurisy, Atelectasis - Discharge Information Prescriptions: methylPREDNISolone [Medrol Dose Pack] 4 mg PO DAILY #21 tab Instructions: Atelectasis, Adult, Pleurisy, [id number] Referrals: PCP,Unobtain [Primary Care Provider] - Additional Instructions: Use the spirometer as you remember at least 3 times a day. My primary The following information is given to patients seen in the emergency department who are being discharged to home. This information is to outline your options for follow-up care. We provide all patients seen in our emergency department with a follow-up referral. The need for follow-up, as well as the timing and circumstances, are variable depending upon the specifics of your emergency department visit. If you don't have a primary care physician on staff, we will provide you with a referral. We always advise you to contact your personal physician following an emergency department visit to inform them of the circumstance of the visit and for follow-up with them and/or the need for any referrals to a consulting specia list. The emergency department will also refer you to a specialist when appropriate. This referral assures that you have the opportunity for follow-up care with a specialist. All of these measure are taken in an effort to provide you with optimal care, which includes your follow-up. Under all circumstances we always encourage you to contact your private physician who remains a resource for coordinating your care. When calling for follow-up care, please make the office aware that this follow-up is from your recent emergency room visit. If for any reason you are refused follow-up, please contact the [facility] at and asked to speak to the emergency department charge nurse. Sepsis Event Note (ED) - Focused Exam Vital Signs: Vital Signs Temp Pulse Resp BP Pulse Ox 05/24/20 15:30 57 L 17 154/90 H 98 05/24/20 15:00 57 L 17 151/88 H 97 05/24/20 14:36 36.6 C 62 18 182/90 H 98 - My Orders Last 24 Hours: My Active Orders 05/24/20 14:40 EKG Documentation Completion [RC] AM Sodium Chloride 0.9% [Saline Flush] 10 ml FLUSH ASDIRECTED PRN Sodium Chloride 0.9% [Saline Flush] 2.5 ml FLUSH ASDIRECTED PRN Saline Lock Insert [OM.PC] Stat 05/24/20 16:26 RT Incentive Spirometry [RC] ASDIRECTED - Assessment/Plan Last 24 Hours: My Active Orders 05/24/20 14:40 EKG Documentation Completion [RC] AM Sodium Chloride 0.9% [Saline Flush] 10 ml FLUSH ASDIRECTED PRN Sodium Chloride 0.9% [Saline Flush] 2.5 ml FLUSH ASDIRECTED PRN Saline Lock Insert [OM.PC] Stat 05/24/20 16:26 RT Incentive Spirometry [RC] ASDIRECTED
[2020-05-24] MEDS ORDERED: Dexamethasone 10 MG/ML SDV IVPUSH ONE ×2 (14:54→15:01)
--- NOTE | 2020-05-24 15:01 | CR ---
INDICATION: Chest pain. TECHNIQUE: AP portable chest x-ray. COMPARISON: Chest x-ray 10/13/2019. FINDINGS: Heart size normal. Linear atelectasis or scarring left lower lung. Minimal opacity in the left costophrenic angle likely related atelectasis. Lungs otherwise clear without infiltrate. Moderate AC separation on the left stable and likely chronic. Moderate degenerative change with hypertrophic ossification about the right AC joint. Plate screw fixation lower cervical and upper thoracic spine. Chest otherwise negative without acute disease. Dictated by Dwayne Raymundo MD @ May 24 2020 2:57PM Signed by Dr. Dwayne Raymundo @ May 24 2020 2:59PM
[2020-05-24 15:10] LABS: BLOOD UREA NITROGEN,BUN 17 mg/dL (7.0-18.0); CARBON DIOXIDE,CO2 26.7 mmol/L (21.0-32.0); CHLORIDE,CL 104 mmol/L (98-107); GLUCOSE RANDOM 116 mg/dL (74-106); POTASSIUM,K 4.1 mmol/L (3.5-5.1); SODIUM,NA 141 mmol/L (136-148)
[2020-05-24] MEDS ORDERED: Iopamidol 755 MG/ML 500 ML Multipack Bottle IVPUSH ONE (15:53)
--- NOTE | 2020-05-24 16:17 | CT ---
Indication: Left-sided chest pain Technique: CT PE with 100 mL Isovue 370 Comparison: CT chest 10/02/2019 Findings: Normal caliber thoracic aorta no pulmonary emboli. No mediastinal or hilar adenopathy. Right apical blebs. Lungs appear clear. Minimal basilar atelectasis. Cervical fusion change no suspicious bony lesions. Impression: 1. No pulmonary emboli. Lungs appear clear. Please note that all CT scans at this facility use dose modulation, iterative reconstruction, and/or weight-based dosing when appropriate to reduce radiation dose to as low as reasonably achievable. Dictated by Ana Harper MD @ May 24 2020 4:11PM Signed by Dr. Ana Harper @ May 24 2020 4:15PM
== END 2020-05-24 16:42 | disposition home or self-care (01) ==
LOC: MW.ED 14:31
DX: J98.11 Atelectasis (principal); R09.1 Pleurisy; I10 Essential (primary) hypertension; K21.9 Gastro-esophageal reflux disease without esophagitis; F17.200 Nicotine dependence, unspecified, uncomplicated; Z91.048 Other nonmedicinal substance allergy status; Z88.5 Allergy status to narcotic agent; Z88.4 Allergy status to anesthetic agent; Z79.899 Other long term (current) drug therapy
CPT/HCPCS: 36415; 71045; 71275; 80053; 84484; 85025; 85379; 93005; 96374; 99285; A9270; J1100; Q9967; 93010; 99283

== ENCOUNTER 2021-04-01 08:52 | Emergency (ER) | payer BC ==
[2021-04-01] MEDS ORDERED: Ondansetron 4 MG/2 ML SDV IVPUSH ONE (09:14)
[2021-04-01] MEDS ORDERED: Sodium Chloride 0.9% 10 ML Syringe FLUSH PRN (09:14)
[2021-04-01] MEDS ORDERED: Sodium Chloride 0.9% 1,000 ML IV ONE (09:14)
[2021-04-01] MEDS ORDERED: Sodium Chloride 0.9% 2.5 ML Syringe FLUSH PRN (09:14)
[2021-04-01 09:55] LABS: BLOOD UREA NITROGEN,BUN 21 mg/dL (7.0-18.0); CARBON DIOXIDE,CO2 22.9 mmol/L (21.0-32.0); CHLORIDE,CL 99 mmol/L (98-107); GLUCOSE RANDOM 133 mg/dL (74-106); LIPASE 174 U/L (73-393); POTASSIUM,K 3.9 mmol/L (3.5-5.1); SODIUM,NA 139 mmol/L (136-148)
== END 2021-04-01 12:09 | disposition home or self-care (01) ==
LOC: MW.ED 08:52
DX: U07.1 COVID-19 (principal); I10 Essential (primary) hypertension; I25.2 Old myocardial infarction; I25.10 Atherosclerotic heart disease of native coronary artery without angina pectoris; K21.9 Gastro-esophageal reflux disease without esophagitis; Z95.5 Presence of coronary angioplasty implant and graft; Z72.0 Tobacco use; Z91.048 Other nonmedicinal substance allergy status; Z88.5 Allergy status to narcotic agent; Z88.4 Allergy status to anesthetic agent; Z79.82 Long term (current) use of aspirin; Z79.899 Other long term (current) drug therapy
CPT/HCPCS: 36415; 71045; 74176; 80053; 80307; 83605; 83690; 83735; 84443; 84484; 85025; 85379; 85730; 87040; 87635; 87804; 93005; 96374; 99285; J2405; J7030; U0002